=== PATIENT | female | born 1935 | race Caucasian/White ===

== ENCOUNTER 2016-12-10 06:56 | Emergency (ER) | payer MEDICARE, OTHER ==
[2016-12-10] MEDS ORDERED: DEXAMETHASONE 10 MG/ML VIAL PO STA (07:33)
[2016-12-10] MEDS ORDERED: HYDROmorphone 1 MG/ML SYRINGE IM STA (07:33)
[2016-12-10] MEDS ORDERED: ONDANSETRON ODT 4 MG TABLET TL STA (07:33)
[2016-12-10] MEDS ORDERED: CHERRY SYRUP 10 ML UDC PO ONE (07:36)
[2016-12-10] MEDS ORDERED: HYDROmorphone 1 MG/ML SYRINGE ONE (07:36)
[2016-12-10] MEDS ORDERED: ONDANSETRON ODT 4 MG TABLET ONE (07:36)
[2016-12-10] MEDS ORDERED: DEXAMETHASONE 10 MG/ML VIAL ONE (07:36)
== END 2016-12-10 09:49 | disposition home or self-care (01) ==
DX: M16.11 Unilateral primary osteoarthritis, right hip (principal); T40.2X5A Adverse effect of other opioids, initial encounter; R11.2 Nausea with vomiting, unspecified; Y92.009 Unspecified place in unspecified non-institutional (private) residence as the place of occurrence of the external cause; I10 Essential (primary) hypertension
CPT/HCPCS: 73502; 96372; 99284; A9270; J1170; Q0162

== ENCOUNTER 2017-03-25 09:37 | Outpatient (CLI) | payer MEDICARE, OTHER | END 2017-03-25 09:38 | disposition home or self-care (01) | DX: I10 Essential (primary) hypertension (principal) ==

== ENCOUNTER 2018-06-07 08:00 | Outpatient (CLI) | payer MEDICARE, OTHER ==
[2018-06-07 13:14] LABS: BASOPHILS # (AUTO) 0.1 10^3/uL (0.0-0.1); BASOPHILS % (AUTO) 2.1 %; EOSINOPHILS # (AUTO) 0.2 10^3/uL (0.0-0.7); EOSINOPHILS % (AUTO) 5.8 %; HGB - HEMOGLOBIN 13.6 g/dL (12.0-16.0); LYMPHOCYTES # (AUTO) 1.3 10^3/uL (1.5-3.5); LYMPHOCYTES % (AUTO) 37.8 %; MEAN CORPUSCULAR HEMOGLOBIN 32.5 pg (27.0-31.0); MEAN CORPUSCULAR VOLUME 95.5 fL (81.0-99.0); MEAN PLATELET VOLUME 7.7 fL (7.9-10.8); MONOCYTES # (AUTO) 0.2 10^3/uL (0.0-1.0); MONOCYTES % (AUTO) 7.1 %; NEUTROPHILS # (AUTO) 1.6 10^3/uL (1.5-6.6); NEUTROPHILS % (AUTO) 47.2 %; PLT - PLATELET COUNT 211 10^3/uL (130-450); RED BLOOD COUNT 4.17 10^6/uL (4.20-5.40); RED CELL DISTRIBUTION WIDTH 12.8 % (12.0-15.0); WHITE BLOOD COUNT 3.5 x10^3/uL (4.8-10.8)
[2018-06-07 13:52] LABS: ALBUMIN 4.2 g/dL (3.2-5.5); ALBUMIN/GLOBULIN RATIO 1.4 (1.0-2.2); ALKALINE PHOSPHATASE 44 IU/L (42-121); ALT ALANINE AMINOTRANSFERASE 19 IU/L (10-60); AST ASPARTATE AMINOTRANSFERASE 27 IU/L (10-42); BILIRUBIN,TOTAL 0.7 mg/dL (0.2-1.0); BUN - BLOOD UREA NITROGEN 18 mg/dL (6-20); CALCIUM 10.3 mg/dL (8.5-10.3); CARBON DIOXIDE - CO2 28 mmol/L (21-32); CHLORIDE 101 mmol/L (101-111); CHOL/HDL RATIO 1.6 (<4.4); CHOLESTEROL 130 mg/dL; CREATININE 0.7 mg/dL (0.4-1.0); GFR - MDRD 80 (>89); GLUCOSE 96 mg/dL (70-100); HDL CHOLESTEROL 79 mg/dL; LDL CHOLESTEROL,CALCULATED 41 mg/dL; LDL/HDL RATIO 0.5 (<4.4); SODIUM 136 mmol/L (135-145); TOTAL PROTEIN 7.2 g/dL (6.7-8.2); VLDL CHOLESTEROL 10 mg/dL
== END 2018-06-07 08:01 | disposition home or self-care (01) ==
LOC: LAB.WCP 08:00
PROVIDERS: ATTEND Physician Assistant
DX: I10 Essential (primary) hypertension (principal); Z79.899 Other long term (current) drug therapy
CPT/HCPCS: 36415; 80053; 80061; 83721; 85025

== ENCOUNTER 2019-01-16 11:20 | Outpatient (CLI) | payer MEDICARE, OTHER ==
[2019-01-16 18:56] LABS: BASOPHILS # (AUTO) 0.1 10^3/uL (0.0-0.1); BASOPHILS % (AUTO) 1.5 %; EOSINOPHILS # (AUTO) 0.2 10^3/uL (0.0-0.7); EOSINOPHILS % (AUTO) 4.3 %; LYMPHOCYTES # (AUTO) 1.1 10^3/uL (1.5-3.5); MEAN CORPUSCULAR HEMOGLOBIN 31.3 pg (27.0-31.0); MEAN PLATELET VOLUME 7.3 fL (7.9-10.8); MONOCYTES # (AUTO) 0.3 10^3/uL (0.0-1.0); MONOCYTES % (AUTO) 7.9 %; NEUTROPHILS # (AUTO) 2.5 10^3/uL (1.5-6.6); NEUTROPHILS % (AUTO) 60.3 %; PLT - PLATELET COUNT 238 10^3/uL (130-450); RED BLOOD COUNT 4.47 10^6/uL (4.20-5.40); RED CELL DISTRIBUTION WIDTH 13.6 % (12.0-15.0); WHITE BLOOD COUNT 4.1 x10^3/uL (4.8-10.8)
[2019-01-16 19:22] LABS: ALBUMIN 4.6 g/dL (3.2-5.5); ALBUMIN/GLOBULIN RATIO 1.6 (1.0-2.2); BILIRUBIN,TOTAL 1.4 mg/dL (0.2-1.0); CALCIUM 9.9 mg/dL (8.5-10.3); CREATININE 0.7 mg/dL (0.4-1.0); TOTAL PROTEIN 7.5 g/dL (6.7-8.2)
[2019-01-16 20:04] LABS: TROPONIN I < 0.04 ng/mL (<0.49)
[2019-01-16 20:07] LABS: CREATINE KINASE MB 12.6 ng/mL (0.6-6.3)
== END 2019-01-16 11:21 | disposition home or self-care (01) ==
LOC: LAB.WCP 11:20
PROVIDERS: ATTEND Nurse Practitioner
DX: R07.89 Other chest pain (principal); R00.2 Palpitations
CPT/HCPCS: 36415; 80053; 82553; 84443; 84484; 85025; 85379

== ENCOUNTER 2019-09-05 08:00 | Outpatient (CLI) | payer MEDICARE, OTHER ==
[2019-09-05 12:27] LABS: BASOPHILS # (AUTO) 0.1 10^3/uL (0.0-0.1); BASOPHILS % (AUTO) 1.9 %; EOSINOPHILS # (AUTO) 0.2 10^3/uL (0.0-0.7); EOSINOPHILS % (AUTO) 5.3 %; LYMPHOCYTES # (AUTO) 1.3 10^3/uL (1.5-3.5); LYMPHOCYTES % (AUTO) 30.5 %; MEAN CORPUSCULAR HEMOGLOBIN 30.4 pg (27.0-31.0); MEAN CORPUSCULAR HGB CONC 32.2 g/dL (32.0-36.0); MEAN CORPUSCULAR VOLUME 94.6 fL (81.0-99.0); MEAN PLATELET VOLUME 9.4 fL (7.9-10.8); MONOCYTES # (AUTO) 0.3 10^3/uL (0.0-1.0); MONOCYTES % (AUTO) 6.9 %; NEUTROPHILS # (AUTO) 2.3 10^3/uL (1.5-6.6); NEUTROPHILS % (AUTO) 55.2 %; PLT - PLATELET COUNT 228 10^3/uL (130-450); RED CELL DISTRIBUTION WIDTH 12.8 % (12.0-15.0); WHITE BLOOD COUNT 4.2 x10^3/uL (4.8-10.8)
[2019-09-05 13:08] LABS: ALBUMIN 4.6 g/dL (3.2-5.5); ALBUMIN/GLOBULIN RATIO 1.6 (1.0-2.2); ALKALINE PHOSPHATASE 42 IU/L (42-121); ALT ALANINE AMINOTRANSFERASE 19 IU/L (10-60); AST ASPARTATE AMINOTRANSFERASE 21 IU/L (10-42); BILIRUBIN,TOTAL 0.7 mg/dL (0.2-1.0); BUN - BLOOD UREA NITROGEN 25 mg/dL (6-20); CALCIUM 10.7 mg/dL (8.5-10.3); CARBON DIOXIDE - CO2 30 mmol/L (21-32); CHLORIDE 100 mmol/L (101-111); CHOL/HDL RATIO 2.1 (<4.4); CHOLESTEROL 149 mg/dL; CREATININE 0.7 mg/dL (0.4-1.0); GFR - MDRD 80 (>89); GLUCOSE 91 mg/dL (70-100); HDL CHOLESTEROL 72 mg/dL; LDL CHOLESTEROL,CALCULATED 62 mg/dL; LDL/HDL RATIO 0.9 (<4.4); SODIUM 138 mmol/L (135-145); TOTAL PROTEIN 7.4 g/dL (6.7-8.2); VLDL CHOLESTEROL 15 mg/dL
== END 2019-09-05 23:59 | disposition home or self-care (01) ==
LOC: LAB.WCP 08:00
PROVIDERS: ATTEND Physician Assistant Medical
DX: Z00.00 Encounter for general adult medical examination without abnormal findings (principal); Z79.899 Other long term (current) drug therapy; K21.9 Gastro-esophageal reflux disease without esophagitis; I63.9 Cerebral infarction, unspecified; B19.20 Unspecified viral hepatitis C without hepatic coma
CPT/HCPCS: 36415; 80053; 80061; 83721; 84443; 85025

== ENCOUNTER 2020-01-17 21:01 | Observation (INO) | payer MEDICARE, OTHER ==
--- NOTE | 2020-01-17 21:30 | ED Physician Documentation ---
History of Present Illness - Stated complaint Stated Complaint: HBP/DIZZY - Chief complaint Chief Complaint: Neuro - Additonal information Additional information: This is an 84-year-old female with a history of posterior circulation stroke/v erterbral artery dissection, colon cancer status post resection, who presents with dizziness and instability on her feet. Patient began feeling dizzy around 4 PM, she told her son about this a half an hour prior to arrival, and he brought her here. She states that in the past when she had the verterbral artery dissection she had similar symptoms except today they felt more mild. She denies residual deficits from her past stroke. She has had a mild epigastric discomfort for several months her PCP told her that this is probably indigestion, no changes to this tonight. She feels unsteady on her feet, she feels worse when she lies down. She does feel somewhat like the world is moving around her, but also just uncoordinated and having difficulty walking. She denies any weakness or numbness, no speech changes, confusion. Her son took her blood pressure at home and it was 170s over 90s. She did take her hydralazine and take an extra dose of this at home. She denies any difficulty breathing Review of Systems Constitutional: denies: Fever Eyes: denies: Loss of vision Ears: denies: Loss of hearing Cardiac: denies: Chest pain / pressure Respiratory: denies: Dyspnea GI: denies: Nausea : denies: Dysuria Musculoskeletal: denies: Neck pain Neurologic: denies: Focal weakness, Numbness PD PAST MEDICAL HISTORY - Past Medical History Cardiovascular: Hypertension Respiratory: None Endocrine/Autoimmune: None GI: Chronic constipation, Other (Colon cancer status post partial colectomy) : None HEENT: Other Psych: None Musculoskeletal: Osteoarthritis, Chronic back pain Derm: Other - Past Surgical History Past Surgical History: Yes General: Cholecystectomy, Appendectomy, Bowel surgery, Colonoscopy /[employer]: section HEENT: Cataracts - Present Medications Home Medications: Ambulatory Orders Medication Instructions Recorded Confirmed lisinopriL [Zestril] 20 mg PO QPM 01/21/14 01/18/20 Aspirin 325 mg PO DAILY 01/18/20 01/18/20 Atorvastatin Calcium 10 mg PO QPM 01/18/20 01/18/20 Calcium Carbonate/Vitamin D3 1 tab PO DAILY 01/18/20 01/18/20 [Caltrate 600 Plus D3 Tablet] Cetirizine [ZyrTEC] 5 - 10 mg PO BID MDD 15 mg 01/18/20 01/18/20 Docusate Sodium 250Mg Capsule 250 mg PO BID 01/18/20 01/18/20 [Colace 250Mg Capsule] Hydralazine HCl 25 mg PO TID #90 tablet 01/18/20 Lisinopril/Hydrochlorothiazide 1 tab PO DAILY 01/18/20 01/18/20 [Lisinopril-Hctz 20-25 mg Tab] Omeprazole Magnesium 20 mg PO DAILY 01/18/20 01/18/20 - Allergies Allergies/Adverse Reactions: Allergies Allergy/AdvReac Type Severity Reaction Status Date / Time No Known Drug Allergies Allergy Verified 01/17/20 21:08 - Social History Does the pt smoke?: No Smoking Status: Never smoker Does the pt drink ETOH?: No Does the pt have substance abuse?: No - Immunizations Immunizations are current?: Yes - POLST Patient has POLST: No POLST Status: Full Code PD ED PE NORMAL - Vitals Vital signs reviewed: Yes - General General: Alert and oriented X 3, No acute distress - HEENT HEENT: PERRL, EOMI - Neck Neck: Supple, no meningeal sign - Cardiac Cardiac: RRR, No murmur - Respiratory Respiratory: No respiratory distress, Clear bilaterally - Abdomen Abdomen: Normal bowel sounds, Soft, Non tender, Non distended - Derm Derm: Warm and dry - Extremities Extremities: No deformity - Neuro Neuro: Other (Alert, oriented x3. Extraocular movements are intact, pupils equal round reactive to light. Sensation to testing over entire face is normal and symmetric. Jaw clench is normal and strength head turn is normal and strength shoulder shrug normal. Tongue protrudes in midline. Hearing is symmetric bilaterally. There is 5 out of 5 strength with hand squeeze finger abduction wrist extension elbow flexion extension hip flexion and extension, ankle dorsiflexion and plantarflexion. Sensation intact over all extremities. She is normal coordination with [id number] testing without dysmetria bilaterally. Normal [id number] with good coordination. She does have a slightly discoordinated/ataxic gait but is able to walk without assistance for a number of steps, though several times she wavers to the side as if she is about to fall. There is no delay with head impulse testing there is no skew of the eyes, there is no nystagmus. [place] produces dizziness but no obvious nystagmus.) - Psych Psych: Normal mood, Normal affect Results - Vitals Vitals: Oxygen O2 Source Room air - EKG (time done) 21:18 Other comments: Other comments (Rate 64, rhythm sinus, baseline wander obscures the frontal leads. The computer reads minimal depression in the inferior leads and ST elevation the lateral leads, I disagree, appears to be some movement artifact, but no consistent elevation or depression.) - Labs Labs: Laboratory Tests 01/17/20 01/17/20 01/17/20 22:23 22:23 22:23 WBC 3.9 L RBC 4.10 L Hgb 12.9 Hct 38.4 MCV 93.7 MCH 31.5 H MCHC 33.6 RDW 12.9 Plt Count 191 MPV 8.8 Neut # (Auto) 2.0 Lymph # (Auto) 1.3 L [place] # (Auto) 0.3 Eos # (Auto) 0.1 Baso # (Auto) 0.1 Absolute Nucleated RBC 0.00 Nucleated RBC % 0.0 PT 12.0 INR 1.1 Sodium 138 Potassium 3.2 L Chloride 99 L Carbon Dioxide 27 Anion Gap 12.0 BUN 20 Creatinine 0.6 Estimated GFR (MDRD) 95 Glucose 115 H Calcium 9.8 Total Bilirubin 0.7 AST 22 ALT 20 Alkaline Phosphatase 46 Troponin I High Sens Total Protein 6.9 Albumin 4.4 Globulin 2.5 Albumin/Globulin Ratio 1.8 Lipase 47 01/17/20 22:23 WBC RBC Hgb Hct MCV MCH MCHC RDW Plt Count MPV Neut # (Auto) Lymph # (Auto) [place] # (Auto) Eos # (Auto) Baso # (Auto) Absolute Nucleated RBC Nucleated RBC % PT INR Sodium Potassium Chloride Carbon Dioxide Anion Gap BUN Creatinine Estimated GFR (MDRD) Glucose Calcium Total Bilirubin AST ALT Alkaline Phosphatase Troponin I High Sens 5.6 Total Protein Albumin Globulin Albumin/Globulin Ratio Lipase - Rads (name of study) Ct head WO Radiology: Other (No acute intracranial abnormality) CTA head and neck Radiology: Other (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 There is a 2 cm hypodensity in the medial portion of the inferior right cerebellum compatible with that infarct in the distal right PICA territory, this is new from 10/02/2017, and could potentially toni present a recent infarct.) PD MEDICAL DECISION MAKING - ED course Complexity details: considered differential (Stroke, TIA, Mnire's disease, benign positional vertigo, electrolyte abnormality, ACS) ED course: On arrival patient is nontoxic-appearing, she has an NIH stroke scale of 0, but with walking she does have some ataxia, she has persistent vertigo and her hints exam shows no Delay with head impulse testing, which suggests a likely central cause of her symptoms. She is outside the window for thrombolytics given that her symptoms began over 4.[address] reveals no acute abnormality. Labs are unremarkable. Patient was given a dose of meclizine, afterwards she had some improvement but she continued to have dizziness. Given that she had a vertebral artery dissection in the past and that her symptoms were similar to when she presented with that dissection, we obtained a CTA of her head and neck, This showed a persistent occlusion of the right vertebral artery as well as a new hypodensity in the medial inferior right cerebellum. Talking with the patient she does continue to have some symptoms, she feels better and is able to walk with more stability but she still wavers at times and appears to have some mild ataxia. After discussion with her, she agrees to admission for further evaluation and work-up. She takes at 325 aspirin a day, and she is already on a statin as well. Pt was admitted for further evaluation and treatment. Departure - Departure Disposition: ED Place in Observation Clinical Impression: Stroke Qualifiers: CVA mechanism: unspecified Qualified Code(s): I63.9 - Cerebral infarction, unspecified Condition: Good Discharge Date/Time: 01/18/20 04:48
[2020-01-17 22:28] LABS: BASOPHILS # (AUTO) 0.1 10^3/uL (0.0-0.1); BASOPHILS % (AUTO) 1.6 %; EOSINOPHILS # (AUTO) 0.1 10^3/uL (0.0-0.7); EOSINOPHILS % (AUTO) 3.1 %; HGB - HEMOGLOBIN 12.9 g/dL (12.0-16.0); LYMPHOCYTES # (AUTO) 1.3 10^3/uL (1.5-3.5); LYMPHOCYTES % (AUTO) 34.4 %; MEAN CORPUSCULAR HEMOGLOBIN 31.5 pg (27.0-31.0); MEAN CORPUSCULAR HGB CONC 33.6 g/dL (32.0-36.0); MEAN CORPUSCULAR VOLUME 93.7 fL (81.0-99.0); MEAN PLATELET VOLUME 8.8 fL (7.9-10.8); MONOCYTES # (AUTO) 0.3 10^3/uL (0.0-1.0); MONOCYTES % (AUTO) 8.8 %; NEUTROPHILS % (AUTO) 51.8 %; PLT - PLATELET COUNT 191 10^3/uL (130-450); RED CELL DISTRIBUTION WIDTH 12.9 % (12.0-15.0); WHITE BLOOD COUNT 3.9 x10^3/uL (4.8-10.8)
[2020-01-17 22:35] LABS: INR 1.1 (0.8-1.2)
[2020-01-17 22:46] LABS: ALBUMIN 4.4 g/dL (3.2-5.5); ALBUMIN/GLOBULIN RATIO 1.8 (1.0-2.2); BILIRUBIN,TOTAL 0.7 mg/dL (0.2-1.0); CALCIUM 9.8 mg/dL (8.5-10.3); CREATININE 0.6 mg/dL (0.4-1.0); TOTAL PROTEIN 6.9 g/dL (6.7-8.2)
[2020-01-17] MEDS ORDERED: MECLIZINE 12.5 MG TABLET PO STA (23:15)
--- NOTE | 2020-01-17 23:24 | CT Report ---
Reason: dizzy, HBP, hx post circulation stroke Procedure Date: 01/17/2020 Accession Number: [id number] / [id number] Procedure: CT - HEAD WO CPT Code: Final Report FULL RESULT: EXAM: CT HEAD EXAM DATE: 01/17/2020 11:12 PM. CLINICAL HISTORY: Dizzy, HBP, hx post circulation stroke. COMPARISON: HEAD ANGIO 10/02/2017 8:16 PM. TECHNIQUE: Multiaxial CT images were obtained from the foramen magnum to the vertex. Reformats: Sagittal and coronal. IV contrast: None. In accordance with CT protocol optimization, one or more of the following dose reduction techniques were utilized for this exam: automated exposure control, adjustment of mA and/or KV based on patient size, or use of iterative reconstructive technique. FINDINGS: Parenchyma: No intraparenchymal hemorrhage. No evidence of mass, midline shift, or CT findings of infarction. Garvin-white differentiation is distinct. Decreased attenuation in periventricular and deep white matter is likely chronic microangiopathy. No change compared to prior exam. Extraaxial Spaces: Volume loss compatible with age. No subdural or epidural collections identified. Ventricles: Normal in size and position. Sinuses and Orbits: Imaged paranasal sinuses, orbits, and mastoids show no significant abnormality. Bones: No evidence of fracture or calvarial defect. Other: None. IMPRESSION: No acute intracranial abnormality. No significant change compared to September 2017. RADIA
[2020-01-18] MEDS ORDERED: IOVERSOL 320 100 ML VIAL IVP ONE ×2 (00:31→00:57)
--- NOTE | 2020-01-18 02:15 | CT Report ---
Reason: hx verterbral dissection, vertigo and ataxia Procedure Date: 01/18/2020 Accession Number: [id number] / [id number] Procedure: CT - ANGIO NECK W CPT Code: Final Report FULL RESULT: EXAM: CT ANGIOGRAM NECK EXAM DATE: 01/18/2020 01:03 AM. CLINICAL HISTORY: Hx vertebral dissection, vertigo and ataxia. COMPARISON: CT HEAD W/O 01/17/2020 11:[address] ANGIO 10/02/2017 8:16 PM. TECHNIQUE: Routine axial helical imaging was performed from the skull base through the aortic arch. Reconstructions: Routine multiplanar 3D MIP reconstructions. IV Contrast: ISOVUE 370. Evaluation of arterial stenosis is based on a NASCET method of measurement. In accordance with CT protocol optimization, one or more of the following dose reduction techniques were utilized for this exam: automated exposure control, adjustment of mA and/or KV based on patient size, or use of iterative reconstructive technique. FINDINGS: Aortic arch: There is mild atherosclerotic calcification scattered in the aortic arch. Visualized arch is otherwise unremarkable. Great vessels are patent without evidence of stenosis. Left vertebral artery arises directly from the aortic arch. A normal variant. Right carotid artery: The common, internal, and external carotid arteries are widely patent. No evidence of stenosis or dissection. Left carotid artery: The common, internal, and external carotid arteries are widely patent. No evidence of stenosis or dissection present Vertebral arteries: Right vertebral artery: The V1 and proximal V2 segments of the right vertebral artery are visualized and are patent. There is complete occlusion of the distal V2 segment at the C2-C3 level. The V3 and proximal V4 segments of the right artery also remain occluded. This is unchanged compared to the previous CT angiogram dated 10/02/2017 and is consistent with the history of prior dissection. Left vertebral artery: The left vertebral artery arises from the aortic arch which is a normal variant. The left for 2 arteries patent and normal in caliber throughout its course without evidence of stenosis or dissection. Other: The neck soft tissues and visualized lung apices are unremarkable. Mild to moderate degenerative change is noted in the cervical spine similar to the previous CTA. IMPRESSION: 1. 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 This is unchanged compared to the previous CTA on 10/02/2017. This is consistent with the history of prior dissection. 2. Left vertebral artery arises directly from the aortic arch and is normal in caliber throughout its course without evidence of stenosis or dissection. 3. Both carotid arteries are patent without evidence of stenosis or dissection. RADIA
--- NOTE | 2020-01-18 02:46 | CT Report ---
Reason: hx verterbral dissection, vertigo and ataxia Procedure Date: 01/18/2020 Accession Number: [id number] / [id number] Procedure: CT - ANGIO HEAD W/WO CPT Code: Final Report FULL RESULT: EXAM: CT ANGIOGRAM HEAD. CT SCAN OF THE HEAD without and with CONTRAST. EXAM DATE: 01/18/2020 01:03 AM CLINICAL HISTORY: Hx vertebral dissection, vertigo and ataxia. COMPARISON: CT HEAD W/O 01/17/2020 11:08 PM. TECHNIQUE: - CT Scan Head: Using a multidetector scanner, axial images were acquired from the foramen magnum to the skull vertex following contrast administration. - CT Angiogram: Using a multidetector scanner, high-resolution axial images were acquired from the skull base through vertex following rapid infusion of intravenous contrast. Reformats: Multiplanar MIP reformats were reconstructed. NASCET criteria used for stenosis measurement. IV Contrast: OPTIRAY 320-80 mL. In accordance with CT protocol optimization, one or more of the following dose reduction techniques were utilized for this exam: automated exposure control, adjustment of mA and/or KV based on patient size, or use of iterative reconstructive technique. FINDINGS: NON-CONTRAST HEAD: Parenchyma: No intraparenchymal hemorrhage. No evidence of mass, mass-effect, or midline shift. There is a 2 cm focus of hypodensity in the medial portion of the inferior right cerebellum (image 6, series 3 and sagittal image 32, series 19). No obvious volume loss is identified in this region. This was not present on the CT on 10/02/2017. This is compatible with a small infarct in the right PICA distribution. This is of indeterminate age. However, the lack of volume loss in this region suggests that this infarct could be acute to subacute in age. MRI with diffusion-weighted imaging would be useful to determine the age of this infarct. There is mild to moderate chronic microvascular change in the cerebral white matter bilaterally. Extraaxial Spaces: There is age-related generalized cerebral volume loss. This is stable. No subdural or epidural collections identified. Ventricles: No hydrocephalus. Sinuses and orbits: Imaged paranasal sinuses, orbits, and mastoids show no significant abnormality. Bones: No evidence of fracture or calvarial defect. Other: None. POST-CONTRAST HEAD: No abnormal enhancement. CT ANGIOGRAM HEAD: Anterior circulation: The petrous, cavernous, and supraclinoid segments of both internal carotid arteries are patent. There is mild atherosclerotic calcification and bilateral carotid siphons. No evidence of stenosis. The middle cerebral and anterior cerebral artery distributions are patent bilaterally and appear unremarkable. The right [employer] has type anatomy. Posterior circulation: The proximal V4 segment of the intracranial right vertebral artery is occluded. This is unchanged compared to 10/02/2017. The distal left vertebral artery supplies the basilar artery and appears normal. The left PICA is visualized and appears normal. There is retrograde filling of the distal right vertebral artery which appears to be the dominant vertebral artery. The proximal portion right PICA is visualized and appears patent. There is a large right AICA which appears to supply most of the right PICA territory. These findings appear similar to the previous CTA on 10/02/2017. The basilar artery is patent and normal in caliber. The P1 segment of the right [employer] is moderately hypoplastic due to anatomy of the right [employer]. This is a normal variant. Posterior circulation is otherwise unremarkable. No aneurysm or AVM is identified. Dural venous sinuses are patent. IMPRESSION: CT Head without and with IV contrast: 1. A 2 cm hypodensity in the medial portion of the inferior right cerebellum posteriorly is compatible with an infarct in the distal right PICA territory. This is of indeterminate age but is new compared to 10/02/2017. This infarct is of indeterminate age. However, the lack of volume loss in this region suggests that this could potentially represent a recent infarct given the clinical history of vertigo/ataxia. An MRI brain would be useful to determine the age of this infarct. There is no evidence of hemorrhage or mass-effect. 2. Age-related generalized cerebral volume loss and chronic microvascular change. 3. No abnormal enhancement. CTA Head: 1. The distal cervical segment of the right vertebral artery and the proximal intracranial V4 segment are occluded. This is unchanged compared to the CTA on 10/02/2017 compatible with a history of prior dissection. 2. There is retrograde filling of the distal right vertebral artery. The proximal portion of a small right PICA is visualized and appears patent. The distal portion of the small right PICA is not definitively visualized. However, there is a large right AICA which appears to supply most of the right PICA territory. This appearance has not changed significantly compared to the CTA on 10/02/2017. 3. The intracranial circulation is otherwise unremarkable. RADIA The critical result notification system was initiated by Dr. Rich Solorio at 02:31 AM on 01/18/2020. The above critical result findings were discussed with Demario Rockwell by Dr. Rich Solorio at 02:37 AM on 01/18/2020.
[2020-01-18] MEDS ORDERED: ONDANSETRON 4 MG/2 ML VIAL IVP PRN (04:03)
[2020-01-18] MEDS ORDERED: SODIUM CHLORIDE FLUSH 0.9% 10 ML SYRINGE IVP PRN (04:03)
[2020-01-18] MEDS ORDERED: oxyCODONE 5 MG TABLET PO PRN (04:03)
[2020-01-18] MEDS ORDERED: ACETAMINOPHEN 325 MG TABLET PO PRN (04:03)
[2020-01-18] MEDS ORDERED: ONDANSETRON ODT 4 MG TABLET TL PRN (04:03)
[2020-01-18] MEDS ORDERED: ATORVASTATIN 40 MG TABLET PO STA (04:07)
--- NOTE | 2020-01-18 04:23 | HISTORY & PHYSICAL EXAMINATION ---
Chief Complaint - Chief Complaint Chief Complaint: sudden dizziness History of Present Illness - Admitted From Admitted From:: Home/ER - History Obtained From Records Reviewed: [facility] History obtained from: Dr. Rockwell Exam Limitations: none - History of Present Illness HPI Comment/Other: This donal lady already has a previous history of a posterior circulation stroke that presented as abrupt nausea and vomiting in September 2017. With that admission she was transferred to [facility]. There was no surgical intervention or TPA and the patient was placed on aspirin and statin. She now returns with abrupt dizziness and a staggering gait. Started around 4:00 today. She was brought to the emergency room and was triaged at 2100 she does not have any facial dysesthesia, dysphasia, blurred vision, headache. She does not feel like there is any numbness or tingling in any particular side of her body. Because her blood pressure was a little high with all of this at home, she took an extra dose of her hydralazine. Her son had taken her blood pressure and it was in the 170s over 90s. She was seen in the emergency room by Dr. Rockwell. Temperature was 36.3, pulse 84, blood pressure 159/110 with respirations 18 and 99% on room air. And CT of the head showed no acute intracranial abnormality and without any change from September 2017. And head and neck CTA was done and was patient has a 2 cm hypodensity in the medial portion of the inferior right cerebellum compatible with an infarct in the distal right PICA territory. This is new compared to October 02, 2017. Radiology recommends an MRI. 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 Unchanged from September 2017. She is now placed in observation status for TIA versus stroke evaluation. 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 Healthy without any major medical issues. Father was 98 when he . Old age. Sister had colon cancer and hypertension Living arrangement: At home Living Situation: Alone Social History Notes: The patient is originally from [place] moved to the [facility] when she was 22 years old. She initially lived with her in [place], [place]. They moved to [facility] about 53 years ago and she has been living here ever since. The patient gave to 4 children 1 of whom has . The patient's about 33 years ago she is . The patient lives alone in her own home she is fully independent. She states that she still drives. 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 Patient has never smoked, does not drink alcohol and denies any illicit drug use. - Substance History Use: Uses substance without health or social issues: NONE Abuse: Recurrent use of substance despite neg consequences: NONE - POLST Patient has POLST: No POLST Status: Full Code Meds/Allgy - Home Medications Home Medications: Ambulatory Orders Medication Instructions Recorded Confirmed Metoprolol Tartrate [Lopressor] 25 mg PO BID 01/21/14 10/02/17 lisinopriL [Zestril] 20 mg PO BID 01/21/14 10/02/17 Meloxicam 1 tab PO DAILY 10/02/17 10/02/17 Triamterene/Hydrochlorothiazid 1 tab PO DAILY 10/02/17 10/02/17 [Triamterene-Hctz 37.5-25 mg Tb] - Allergies Allergies/Adverse Reactions: Allergies Allergy/AdvReac Type Severity Reaction Status Date / Time No Known Drug Allergies Allergy Verified 01/17/20 21:08 Review of Systems - Constitutional Constitutional: denies: Fatigue, Fever, Chills, Malaise - Eyes Eyes: denies: Pain, Field loss, Vision loss, Dipolpia - Ears, Nose & Throat Ears, Nose & Throat: reports: Vertigo. denies: Ear pain, Nosebleeds, Nasal obstruction, Nasal congestion, Sore throat - Cardiovascular Cariovascular: denies: Irregular heart rate, Palpitations, Chest pain, Edema, Syncope, Exertional dyspnea - Respiratory Respiratory: denies: Cough, Sputum production, Wheezing, SOB at rest, SOB with exertion - Gastrointestinal Gastrointestinal: reports: Constipation. denies: Abdominal pain, Abdominal distention, Diarrhea, Nausea, Vomiting - Genitourinary Genitourinary: denies: Dysuria, Frequency, Hematuria, Flank pain - Musculoskeletal Musculoskeletal: reports: Joint pain. denies: Muscle pain, Back pain, Muscle aches - Integumentary Integumentary: denies: Rash, Pruritis, Lesions - Neurological Neurological: reports: Dizziness. denies: General weakness, Focal weakness, Headache - Psychiatric Psychiatric: denies: Depression, Anxiety, Suicidal - Endocrine Endocrine: denies: Polyuria, Polydypsia, Polyphagia - Hematologic/Lymphatic Hematologic/Lymphatic: denies: Anemia Prior Level of Functionality: Does not need any assistance with activities of daily living and does not use any durable medical equipment Exam - Vital Signs Reviewed Vital Signs: Yes Vital Signs: Vital Signs x48h Temp Pulse Resp BP Pulse Ox 01/18/20 04:19 64 15 97 01/18/20 01:30 56 L 16 167/87 H 97 01/18/20 01:00 57 L 17 165/93 H 97 01/18/20 00:00 60 22 172/89 H 96 01/17/20 23:14 63 18 181/87 H 98 01/17/20 22:25 190/75 H 01/17/20 21:37 66 20 194/98 H 01/17/20 21:36 61 16 190/106 H 01/17/20 21:04 36.3 C L 84 18 159/110 H 99 - Physical Exam General Appearance: positive: No acute distress, Alert, Other (She is a delightful elderly female who gets up without any assist from the bed to then walk to the toilet to go to the bathroom. Gets up from the bathroom without any assist and then walks back to sit down on the bed, move her legs up into the bed and lay down, all without assist. All without ataxia.) Eyes Bilateral: positive: PERRL, EOMI ENT: positive: Pharynx nml Neck: positive: No JVD. negative: Stiff neck, Carotid bruit Respiratory: positive: Chest non-tender, Other (Kyphosis of the spine has a forward leaning posture). negative: Wheezes, Rales, Rhonchi Cardiovascular: positive: Regular rate & rhythm, No murmur. negative: Gallop/S4, Friction rub Peripheral Pulses: positive: 1+ Abdomen: positive: Non-tender, No organomegaly, Nml bowel sounds, No distention Skin: positive: Warm, Dry Extremities: positive: Non-tender, No pedal edema Neurologic/Psychiatric: positive: Oriented x3, CN's nml (2-12), Motor nml, Sensation nml Reflexes: Bicep (R): 1+, Bicep (L): 1+, Knee (R): 1+, Knee (L): 1+, Ankle (R): 0, Ankle (L): 0 Babinski Reflex: Right: Down, Left: Down Conclusion/Plan - Problem List (1) TIA (transient ischemic attack) Conclusion/Plan: Most of her symptoms have resolved. In the emergency room she was road tested and has a little bit of instability with gait. She denies that she had any residual from her previous stroke. Current CT shows that there is been a new event since her last stroke but is unclear if it is acute or chronic. Current symptoms could be TIA. Plan: Aspirin 325 Atorvastatin MRI in the morning Telemetry Echo (2) Hypertension Conclusion/Plan: Allow permissive hypertension up to 180 systolic. I will resume her metoprolol to avoid rebound tachycardia. I will not give her her lisinopril at this time. Qualifiers: Hypertension type: essential hypertension Qualified Code(s): I10 - Essential (primary) hypertension (3) Hypokalemia Conclusion/Plan: Supplement p.o. and recheck in 4 hours - Lab Results Lab results reviewed: Yes Fish Bones: 01/17/20 22:23 01/17/20 22:23 - Diagnostic Imaging Results Diagnostic Imaging Results: positive: Final report reviewed Core Measures - Anticipated LOS I expect patient to be DC'd or transferred within 96 hours.: Yes - DVT/VTE - Prophylaxis VTE/DVT Device ordered at admit?: Yes
[2020-01-18] MEDS ORDERED: POTASSIUM CHLORIDE 20 MEQ TABLET PO ONE (04:45)
--- NOTE | 2020-01-18 08:41 | MRI Report ---
Reason: stroke Procedure Date: 01/18/2020 Accession Number: [id number] / [id number] Procedure: MRI - Brain W/O CPT Code: Final Report FULL RESULT: EXAM: MRI BRAIN WITHOUT CONTRAST EXAM DATE: 01/18/2020 08:22 AM. CLINICAL HISTORY: Stroke, history of right vertebral dissection. COMPARISON: HEAD W/O 01/17/2020 11:08 PM. TECHNIQUE: Multiplanar, multisequence T1-weighted and fluid-sensitive MR sequences of the brain were performed. Sequences optimized for routine evaluation. Other: None. IV Contrast: None. FINDINGS: Parenchyma/Dura: No restricted diffusion. 15 x 24 mm band of high T2 signal volume loss and right inferior cerebellum. Scattered foci of increased T2 signal involving the white matter of bilateral cerebral hemispheres. No white matter lesions identified. Ventricles/Cisterns: Mild prominence. No mass-effect and no midline shift. No abnormal extra-axial fluid collection or hemorrhage. Orbits: Symmetric and unremarkable. Sella Turcica: Unremarkable. Vasculature: Loss of right vertebral flow void. Sinuses: No acute appearing sinus disease. Bones: No focal pathologic appearing marrow signal changes. Other: None. IMPRESSION: 1. No evidence of acute infarct. 2. 2.4 cm remote right inferior cerebellar infarct. 3. Known right vertebral occlusion. 4. Mild to moderate microvascular white matter disease. RADIA
[2020-01-18] MEDS ORDERED: METOPROLOL TARTRATE 25 MG TABLET PO SCH (09:00)
[2020-01-18] MEDS ORDERED: ASPIRIN EC 325 MG TABLET PO SCH (09:00)
[2020-01-18] MEDS ORDERED: SODIUM CHLORIDE FLUSH 0.9% 10 ML SYRINGE IVP SCH (09:00)
[2020-01-18] MEDS ORDERED: lisinopriL 20 MG TABLET PO SCH (11:00)
--- NOTE | 2020-01-18 11:35 | PHARMACY PROGRESS NOTE ---
- Best Possible Medication History Admit Date and Time: 01/18/20 0403 Processed by: Pharmacy Medication History completed: Yes Patient Interview: Completed Secondary Source(s): Other family member (daughter in law), Insurance records As the person ultimately responsible for medication therapy, providers are able to order a medication from an existing home medication list in [facility] via the "Reconcile Routine" prior to Confirmation of that medication by user support analyst. Such practice is discouraged except when the physician, in their clinical judgment, deems that a medical need exists for a medication without regard to previous use.
--- NOTE | 2020-01-18 11:35 | Discharge Plan ---
Discharge Plan Problem Reviewed?: Yes Disposition: Home, Self Care Condition: Good Prescriptions: Hydralazine HCl 25 mg PO TID #90 tablet Diet: Regular Activity Restrictions: Activity as Tolerated Shower Restrictions: No Instruction Topics: TIA Health Concerns: TIA Bradycardia (low heart rate) Hypertension (high blood pressure) Plan of Treatment: Continue all of your usual medications STOP the metoprolol, if resumed, ok to take 12.5mg (succinate-sustained release) See your PCP within one week Care Goals: Prevent symptoms Prevent hospital stays or ED visits Assessment: You were in the hospital to determine if you suffered permanent damage from your prior stroke symptoms, which was negative. The fact that your symptoms resolved, concludes the final diagnosis of a TIA (transient ishemic attack). The treatment for this is a full dose aspirin and a statin (Atorvastatin), which you are already on at home. During your stay, you were monitored on telemetry showing a very low heart rate 40-60s. This is concerning and if prolonged; can cause you to fall, make your very tired. For this, you will need to stop the beta danay (metoprolol). You are free to return home today. There is a prescription for Hydralazine to be taken three times per day. No Smoking: If you smoke, Please STOP! Call for help. Follow-up with: Nicolasa Rapp PA-C [Primary Care Provider] -
--- NOTE | 2020-01-18 11:35 | DISCHARGE SUMMARY ---
Discharge Summary Admit Date: 01/18/20 Discharge Date: 01/18/20 Discharging Provider: MAIK Lea Primary Care Provider: Nicolasa Rapp Code Status: Attempt Resuscitation Condition at Discharge: Good Discharge Disposition: 01 Home, Self Care - DIAGNOSES Admission Diagnoses: TIA (transient ischemic attack) HTN (hypertension) Hypokalemia Discharge Diagnoses with Status of Each Condition: TIA (transient ischemic attack)-Present on admission, no new infarcts, continued on full dose ASA, statin, stable Prior cerebellar infarct without late effect-Known on admission, found again today during head imaging, stable 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 Moe: This donal lady already has a previous history of a posterior circulation stroke that presented as abrupt nausea and vomiting in September 2017. With that admission she was transferred to [facility]. There was no surgical intervention or TPA and the patient was placed on aspirin and statin. She now returns with abrupt dizziness and a staggering gait. Started around 4:00 today. She was brought to the emergency room and was triaged at 2100 she does not have any facial dysesthesia, dysphasia, blurred vision, headache. She does not feel like there is any numbness or tingling in any particular side of her body. Because her blood pressure was a little high with all of this at home, she took an extra dose of her hydralazine. Her son had taken her blood pressure and it was in the 170s over 90s. She was seen in the emergency room by Dr. Rockwell. Temperature was 36.3, pulse 84, blood pressure 159/110 with respirations 18 and 99% on room air. And CT of the head showed no acute intracranial abnormality and without any change from September 2017. And head and neck CTA was done and was patient has a 2 cm hyp odensity in the medial portion of the inferior right cerebellum compatible with an infarct in the distal right PICA territory. This is new compared to October 02, 2017. Radiology recommends an MRI. 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 Unchanged from September 2017. - HOSPITAL COURSE Hospital Course: The patient was admitted for observation for a TIA work up, which was negative. The patient remained on her usual full dose aspirin and a statin (Atorvastatin), which she was already on at home. During her stay, she was monitored on telemetry showing a very low heart rate 40-60s. This was concerning, so her metoprolol was stopped. Since she had continued hypertension, a 3rd dose of hydralazine was added going from BID to TID, with no other changes. The patient passed her physical therapy evaluation, had no recurrance of her symptoms and was medically stable. Her family transported her back home via private car. - ALLERGIES Allergies/Adverse Reactions: Allergies Allergy/AdvReac Type Severity Reaction Status Date / Time No Known Drug Allergies Allergy Verified 01/17/20 21:08 - MEDICATIONS Home Medications: Ambulatory Orders Medication Instructions Recorded Confirmed lisinopriL [Zestril] 20 mg PO QPM 01/21/14 01/18/20 Aspirin 325 mg PO DAILY 01/18/20 01/18/20 Atorvastatin Calcium 10 mg PO QPM 01/18/20 01/18/20 Calcium Carbonate/Vitamin D3 1 tab PO DAILY 01/18/20 01/18/20 [Caltrate 600 Plus D3 Tablet] Cetirizine [ZyrTEC] 5 - 10 mg PO BID MDD 15 mg 01/18/20 01/18/20 Docusate Sodium 250Mg Capsule 250 mg PO BID 01/18/20 01/18/20 [Colace 250Mg Capsule] Hydralazine HCl 25 mg PO TID #90 tablet 01/18/20 Lisinopril/Hydrochlorothiazide 1 tab PO DAILY 01/18/20 01/18/20 [Lisinopril-Hctz 20-25 mg Tab] Omeprazole Magnesium 20 mg PO DAILY 01/18/20 01/18/20 - PHYSICAL EXAM AT DISCHARGE General Appearance: positive: No acute distress, Alert Eyes Bilateral: positive: Normal inspection, PERRL, Other (bilateral pupils are more constricted than expected, no changes in vision) ENT: positive: Dry mucous membranes Neck: positive: No JVD, Trachea midline Respiratory: positive: Chest non-tender, No respiratory distress, Breath sounds nml Cardiovascular: positive: Regular rate & rhythm, Bradycardia, Systolic murmur, Decreased pulse(s) Peripheral Pulses: positive: 1+ Abdomen: positive: Non-tender, Nml bowel sounds, Other (rounded, soft) Back: positive: Nml inspection Skin: positive: No rash, Warm, Dry Extremities: positive: Non-tender, Full ROM, No pedal edema, Joint swelling Neurologic/Psychiatric: positive: Oriented x3, CN's nml (2-12), Motor nml, Sensation nml, Mood/affect nml, Sensory loss Reflexes: Bicep (R): 3+, Bicep (L): 3+, Ankle (R): 3+, Ankle (L): 3+ - LABS Result Diagrams: 01/17/20 22:23 01/18/20 11:00 - FOLLOW UP Follow Up: See PCP within one week - TIME SPENT Time Spent in Discharge (Minutes): 55
[2020-01-18] MEDS ORDERED: hydroCHLOROthiazide 25 MG TABLET PO SCH (12:24)
[2020-01-18] MEDS ORDERED: hydrALAZINE 25 MG TABLET PO ONE (13:56)
[2020-01-18 14:10] VITALS: BP 145/73
[2020-01-18] MEDS ORDERED: ATORVASTATIN 40 MG TABLET PO SCH (21:00)
== END 2020-01-18 14:59 | disposition home or self-care (01) ==
LOC: ED 21:01 → MS2 01-18 04:03
PROVIDERS: ADMIT Specialist; ATTEND Nurse Practitioner
DX: G45.9 Transient cerebral ischemic attack, unspecified (principal); I10 Essential (primary) hypertension; E87.6 Hypokalemia; R00.1 Bradycardia, unspecified; F03.90 Unspecified dementia, unspecified severity, without behavioral disturbance, psychotic disturbance, mood disturbance, and anxiety; K59.09 Other constipation; G89.29 Other chronic pain; M54.9 Dorsalgia, unspecified; Z86.73 Personal history of transient ischemic attack (TIA), and cerebral infarction without residual deficits; Z79.82 Long term (current) use of aspirin; Z79.899 Other long term (current) drug therapy; Z90.49 Acquired absence of other specified parts of digestive tract; Z85.038 Personal history of other malignant neoplasm of large intestine
CPT/HCPCS: 36415; 70450; 70496; 70498; 70551; 80053; 83690; 84132; 84484; 85025; 85610; 93005; 93306; 97161; 99284; 99285; A9270; G0378; Q9967

== ENCOUNTER 2020-04-11 18:49 | Outpatient (CLI) | payer MEDICARE, OTHER | END 2020-04-11 18:50 | disposition home or self-care (01) | LOC: COV 18:49 | PROVIDERS: ATTEND Family Medicine | DX: M79.10 Myalgia, unspecified site (principal); R53.83 Other fatigue | CPT/HCPCS: 81599 ==

== ENCOUNTER 2020-05-29 12:19 | Outpatient (CLI) | payer MEDICARE, OTHER ==
[2020-05-29 13:33] LABS: CALCIUM 9.5 mg/dL (8.5-10.3); CREATININE 0.6 mg/dL (0.4-1.0)
== END 2020-05-29 12:20 | disposition home or self-care (01) ==
LOC: LAB 12:19
PROVIDERS: ATTEND Nurse Practitioner Family
DX: I10 Essential (primary) hypertension (principal)
CPT/HCPCS: 36415; 80048

== ENCOUNTER 2020-10-18 08:56 | Outpatient (CLI) | payer MEDICARE, OTHER ==
[2020-10-18 13:05] LABS: BASOPHILS # (AUTO) 0.1 10^3/uL (0.0-0.1); BASOPHILS % (AUTO) 1.4 %; EOSINOPHILS # (AUTO) 0.1 10^3/uL (0.0-0.7); EOSINOPHILS % (AUTO) 3.4 %; HGB - HEMOGLOBIN 13.4 g/dL (12.0-16.0); LYMPHOCYTES # (AUTO) 1.3 10^3/uL (1.5-3.5); LYMPHOCYTES % (AUTO) 37.6 %; MEAN CORPUSCULAR HEMOGLOBIN 30.5 pg (27.0-31.0); MEAN CORPUSCULAR HGB CONC 32.4 g/dL (32.0-36.0); MEAN CORPUSCULAR VOLUME 93.9 fL (81.0-99.0); MEAN PLATELET VOLUME 9.5 fL (7.9-10.8); MONOCYTES # (AUTO) 0.2 10^3/uL (0.0-1.0); MONOCYTES % (AUTO) 6.9 %; NEUTROPHILS # (AUTO) 1.8 10^3/uL (1.5-6.6); NEUTROPHILS % (AUTO) 50.4 %; PLT - PLATELET COUNT 220 10^3/uL (130-450); RED CELL DISTRIBUTION WIDTH 12.8 % (12.0-15.0); WHITE BLOOD COUNT 3.5 x10^3/uL (4.8-10.8)
[2020-10-18 13:28] LABS: ALBUMIN 4.4 g/dL (3.2-5.5); ALBUMIN/GLOBULIN RATIO 1.7 (1.0-2.2); ALKALINE PHOSPHATASE 52 IU/L (42-121); ALT ALANINE AMINOTRANSFERASE 17 IU/L (10-60); AST ASPARTATE AMINOTRANSFERASE 20 IU/L (10-42); BILIRUBIN,TOTAL 0.7 mg/dL (0.2-1.0); BUN - BLOOD UREA NITROGEN 25 mg/dL (6-20); CALCIUM 9.4 mg/dL (8.5-10.3); CARBON DIOXIDE - CO2 27 mmol/L (21-32); CHLORIDE 101 mmol/L (101-111); CHOL/HDL RATIO 1.9 (<4.4); CHOLESTEROL 146 mg/dL; CREATININE 0.5 mg/dL (0.4-1.0); GLUCOSE 96 mg/dL (70-100); HDL CHOLESTEROL 75 mg/dL; SODIUM 136 mmol/L (135-145)
== END 2020-10-18 23:59 | disposition home or self-care (01) ==
LOC: LAB.WCP 08:56
PROVIDERS: ATTEND Physician Assistant Medical
DX: I63.9 Cerebral infarction, unspecified (principal); I10 Essential (primary) hypertension
CPT/HCPCS: 36415; 80053; 80061; 83721; 85025

== ENCOUNTER 2021-05-16 08:00 | Outpatient (CLI) | payer MEDICARE, OTHER ==
[2021-05-16 11:35] LABS: BASOPHILS # (AUTO) 0.1 10^3/uL (0.0-0.1); EOSINOPHILS # (AUTO) 0.1 10^3/uL (0.0-0.7); EOSINOPHILS % (AUTO) 3.7 %; HCT - HEMATOCRIT 43.7 % (37.0-47.0); HGB - HEMOGLOBIN 13.9 g/dL (12.0-16.0); LYMPHOCYTES # (AUTO) 1.3 10^3/uL (1.5-3.5); LYMPHOCYTES % (AUTO) 41.8 %; MEAN CORPUSCULAR HEMOGLOBIN 30.2 pg (27.0-31.0); MEAN CORPUSCULAR HGB CONC 31.8 g/dL (32.0-36.0); MEAN PLATELET VOLUME 9.8 fL (7.9-10.8); MONOCYTES # (AUTO) 0.2 10^3/uL (0.0-1.0); MONOCYTES % (AUTO) 7.4 %; NEUTROPHILS # (AUTO) 1.3 10^3/uL (1.5-6.6); NEUTROPHILS % (AUTO) 43.8 %; PLT - PLATELET COUNT 200 10^3/uL (130-450); RED CELL DISTRIBUTION WIDTH 12.8 % (12.0-15.0)
[2021-05-16 11:43] LABS: SLIDE REVIEW? Indicated
[2021-05-16 12:27] LABS: PLATELET ESTIMATE, MANUAL NORMAL (130-450,000) (NORMAL); PLATELET MORPHOLOGY NORMAL APPEARANCE (NORMAL); RBC MORPHOLOGY (MULTIPLE) NORMAL APPEARANCE (NORMAL)
[2021-05-16 12:39] LABS: ALBUMIN 4.8 g/dL (3.2-5.5); BILIRUBIN,TOTAL 1.2 mg/dL (0.2-1.0); CALCIUM 10.1 mg/dL (8.5-10.3); CREATININE 0.7 mg/dL (0.4-1.0); POTASSIUM 3.7 mmol/L (3.5-5.0); TOTAL PROTEIN 7.2 g/dL (6.7-8.2)
== END 2021-05-16 23:59 | disposition home or self-care (01) ==
LOC: LAB.WCP 08:00
PROVIDERS: ATTEND Physician Assistant Medical
DX: I10 Essential (primary) hypertension (principal)
CPT/HCPCS: 36415; 80053; 85025

== ENCOUNTER 2021-06-30 10:32 | Outpatient (CLI) | payer MEDICARE, OTHER ==
--- NOTE | 2021-07-01 13:56 | Mammography Report ---
BILATERAL DIGITAL SCREENING MAMMOGRAM: 06/30/2021 CLINICAL: Family history of breast cancer. Routine screening. Comparison is made to exams dated: 05/25/2016 mammogram, 06/08/2013 mammogram, 04/28/2012 mammogram, an d 04/14/2011 mammogram - [facility]. The tissue of both breasts is extremely dense, which lowers the sensitivity of mammography. There are calcifications in both breasts. There also are post operative findings in the right breast . No significant masses, calcifications, or other findings are seen in either breast. There has been no significant interval change. IMPRESSION: BENIGN There is no mammographic evidence of malignancy. A 1 year screening mammogram is recommended. This exam was interpreted at Station ID: [id number]. NOTE: For mammograms, a report in lay terms will be sent to the patient. Approximately 15% of breast malignancies will not be visualized mammographically. In the management of a palpable breast mass, a negative mammogram must not discourage biopsy of a clinically suspicious lesion. Electronically Signed By: Hunter Moore M.D. aty/:06/30/2021 13:17:42 ACR BI-RADS Category 2: Benign Finding(s) 3342F PARENCHYMAL PATTERN: (VD) - The breast(s) demonstrate(s) extremely dense parenchyma, limiting the sen sitivity of mammography. BI-RADS CATEGORY: (2) - 2 RECOMMENDATION: (ANNUAL) - Recommend routine annual screening mammography. [id number] 1 year screening LATERALITY: (B)
== END 2021-06-30 10:33 | disposition home or self-care (01) ==
LOC: DI.N 10:32
DX: Z12.31 Encounter for screening mammogram for malignant neoplasm of breast (principal); Z80.3 Family history of malignant neoplasm of breast

== ENCOUNTER 2021-11-10 09:10 | Outpatient (CLI) | payer MEDICARE, OTHER ==
[2021-11-10 12:25] LABS: BASOPHILS # (AUTO) 0.1 10^3/uL (0.0-0.1); EOSINOPHILS # (AUTO) 0.1 10^3/uL (0.0-0.7); EOSINOPHILS % (AUTO) 3.4 %; HCT - HEMATOCRIT 43.4 % (37.0-47.0); HGB - HEMOGLOBIN 14.4 g/dL (12.0-16.0); LYMPHOCYTES # (AUTO) 1.5 10^3/uL (1.5-3.5); LYMPHOCYTES % (AUTO) 36.6 %; MEAN CORPUSCULAR HEMOGLOBIN 31.4 pg (27.0-31.0); MEAN CORPUSCULAR HGB CONC 33.2 g/dL (32.0-36.0); MEAN CORPUSCULAR VOLUME 94.6 fL (81.0-99.0); MEAN PLATELET VOLUME 10.2 fL (7.9-10.8); MONOCYTES # (AUTO) 0.3 10^3/uL (0.0-1.0); MONOCYTES % (AUTO) 7.6 %; NEUTROPHILS % (AUTO) 50.2 %; PLT - PLATELET COUNT 214 10^3/uL (130-450); RED BLOOD COUNT 4.59 10^6/uL (4.20-5.40); RED CELL DISTRIBUTION WIDTH 12.8 % (12.0-15.0); WHITE BLOOD COUNT 4.1 x10^3/uL (4.8-10.8)
[2021-11-10 12:41] LABS: ALBUMIN 4.6 g/dL (3.2-5.5); ALBUMIN/GLOBULIN RATIO 1.7 (1.0-2.2); ALKALINE PHOSPHATASE 43 IU/L (42-121); ALT ALANINE AMINOTRANSFERASE 14 IU/L (10-60); AST ASPARTATE AMINOTRANSFERASE 21 IU/L (10-42); BILIRUBIN,TOTAL 1.1 mg/dL (0.2-1.0); BUN - BLOOD UREA NITROGEN 18 mg/dL (6-20); CALCIUM 9.7 mg/dL (8.5-10.3); CARBON DIOXIDE - CO2 30 mmol/L (21-32); CHLORIDE 100 mmol/L (101-111); CHOL/HDL RATIO 1.9 (<4.4); CHOLESTEROL 152 mg/dL; CREATININE 0.6 mg/dL (0.4-1.0); GFR - MDRD 95 (>89); GLUCOSE 102 mg/dL (70-100); HDL CHOLESTEROL 81 mg/dL; LDL CHOLESTEROL,CALCULATED 59 mg/dL; LDL/HDL RATIO 0.7 (<4.4); POTASSIUM 2.9 mmol/L (3.5-5.0); SODIUM 143 mmol/L (135-145); TOTAL PROTEIN 7.3 g/dL (6.7-8.2); TRIGLYCERIDES 62 mg/dL; VLDL CHOLESTEROL 12 mg/dL
== END 2021-11-10 23:59 | disposition home or self-care (01) ==
LOC: LAB.WCP 09:10
PROVIDERS: ATTEND Physician Assistant Medical
DX: I10 Essential (primary) hypertension (principal); I63.9 Cerebral infarction, unspecified
CPT/HCPCS: 36415; 80053; 80061; 83721; 85025

== ENCOUNTER 2021-12-08 08:00 | Outpatient (CLI) | payer MEDICARE, OTHER ==
[2021-12-08 12:44] LABS: CALCIUM 10.3 mg/dL (8.5-10.3); CREATININE 0.5 mg/dL (0.4-1.0); POTASSIUM 3.4 mmol/L (3.5-5.0)
== END 2021-12-08 23:59 ==
LOC: LAB.WCP 08:00
PROVIDERS: ATTEND Nurse Practitioner Family
DX: E87.6 Hypokalemia (principal)
CPT/HCPCS: 36415; 80048

== ENCOUNTER 2022-05-21 13:26 | Outpatient (CLI) | payer MEDICARE, OTHER ==
[2022-05-21 17:57] LABS: CALCIUM 9.9 mg/dL (8.5-10.3); CREATININE 0.6 mg/dL (0.4-1.0); POTASSIUM 3.8 mmol/L (3.5-5.0)
== END 2022-05-21 13:27 | disposition home or self-care (01) ==
LOC: LAB.N 13:26
PROVIDERS: ATTEND Physician Assistant Medical
DX: E87.6 Hypokalemia (principal)
CPT/HCPCS: 36415; 80048

== ENCOUNTER 2022-06-17 13:29 | Day surgery (SDC) | payer MEDICARE, OTHER ==
[2022-06-17 17:54] LABS: CALCIUM 10.1 mg/dL (8.5-10.3); CREATININE 0.5 mg/dL (0.4-1.0); POTASSIUM 4.1 mmol/L (3.5-5.0)
== END 2022-06-17 13:30 | disposition home or self-care (01) ==
LOC: LAB.N 13:29
PROVIDERS: ATTEND Physician Assistant Medical
DX: R63.4 Abnormal weight loss (principal)
CPT/HCPCS: 36415; 80048

== ENCOUNTER 2022-11-04 09:40 | Outpatient (CLI) | payer MEDICARE, OTHER ==
[2022-11-04 11:50] LABS: BASOPHILS # (AUTO) 0.1 10^3/uL (0.0-0.1); BASOPHILS % (AUTO) 1.9 %; EOSINOPHILS # (AUTO) 0.1 10^3/uL (0.0-0.7); EOSINOPHILS % (AUTO) 2.7 %; HCT - HEMATOCRIT 42.9 % (37.0-47.0); LYMPHOCYTES # (AUTO) 1.3 10^3/uL (1.5-3.5); LYMPHOCYTES % (AUTO) 35.2 %; MEAN CORPUSCULAR HEMOGLOBIN 31.2 pg (27.0-31.0); MEAN CORPUSCULAR HGB CONC 32.6 g/dL (32.0-36.0); MEAN CORPUSCULAR VOLUME 95.5 fL (81.0-99.0); MEAN PLATELET VOLUME 9.1 fL (7.9-10.8); MONOCYTES # (AUTO) 0.3 10^3/uL (0.0-1.0); MONOCYTES % (AUTO) 7.7 %; NEUTROPHILS % (AUTO) 52.2 %; PLT - PLATELET COUNT 225 10^3/uL (130-450); RED BLOOD COUNT 4.49 10^6/uL (4.20-5.40); RED CELL DISTRIBUTION WIDTH 12.3 % (12.0-15.0); WHITE BLOOD COUNT 3.8 x10^3/uL (4.8-10.8)
[2022-11-04 12:27] LABS: ALBUMIN 4.7 g/dL (3.2-5.5); ALBUMIN/GLOBULIN RATIO 1.7 (1.0-2.2); ALKALINE PHOSPHATASE 44 IU/L (42-121); ALT ALANINE AMINOTRANSFERASE 20 IU/L (10-60); AST ASPARTATE AMINOTRANSFERASE 25 IU/L (10-42); BILIRUBIN,TOTAL 0.8 mg/dL (0.2-1.0); BUN - BLOOD UREA NITROGEN 25 mg/dL (6-20); CALCIUM 9.9 mg/dL (8.5-10.3); CARBON DIOXIDE - CO2 30 mmol/L (21-32); CHLORIDE 95 mmol/L (101-111); CHOL/HDL RATIO 1.9 (<4.4); CHOLESTEROL 146 mg/dL; CREATININE 0.6 mg/dL (0.4-1.0); GFR - MDRD 95 (>89); GLUCOSE 100 mg/dL (70-100); HDL CHOLESTEROL 77 mg/dL; LDL CHOLESTEROL,CALCULATED 57 mg/dL; LDL/HDL RATIO 0.7 (<4.4); POTASSIUM 4.6 mmol/L (3.5-5.0); SODIUM 133 mmol/L (135-145); TOTAL PROTEIN 7.4 g/dL (6.7-8.2); TRIGLYCERIDES 60 mg/dL; VLDL CHOLESTEROL 12 mg/dL
== END 2022-11-04 09:41 | disposition home or self-care (01) ==
LOC: LAB.N 09:40
PROVIDERS: ATTEND Physician Assistant Medical
DX: I10 Essential (primary) hypertension (principal); K21.9 Gastro-esophageal reflux disease without esophagitis
CPT/HCPCS: 36415; 80053; 80061; 83721; 85025

== ENCOUNTER 2022-11-27 14:49 | Emergency (ER) | payer MEDICARE, OTHER ==
[2022-11-27] MEDS ORDERED: HYDROmorphone 1 MG/ML CARPUJECT IVP STA (15:05)
[2022-11-27] MEDS ORDERED: ONDANSETRON 4 MG/2 ML VIAL IVP STA (15:05)
[2022-11-27] MEDS ORDERED: SODIUM CHLORIDE 0.9% 1,000 ML IV STA ×2 (15:05)
--- NOTE | 2022-11-27 15:08 | ED Physician Documentation ---
PD HPI ABD PAIN - Stated complaint Stated Complaint: L ABD PX/VOMITING - Chief complaint Chief Complaint: Abd Pain - History obtained from History obtained from: Patient, Family - Additional information Additional information: Patient with history of stroke, colon cancer status postresection, appendectomy, multiple C-sections, sounds like she has had an SBO once. She developed lower abdominal pain yesterday with vomiting and now dry heaving and the pain became more generalized. She is not able to eat or drink and she has not had any bowel output. No fevers. Pain is now severe. She is here with her daughter who is at the bedside. 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 HEENT: Cataracts - Present Medications Home Medications: Ambulatory Orders Medication Instructions Recorded Confirmed lisinopriL [Zestril] 20 mg PO QPM 01/21/14 01/18/20 Aspirin 325 mg PO DAILY 01/18/20 01/18/20 Atorvastatin Calcium 10 mg PO QPM 01/18/20 01/18/20 Calcium Carbonate/Vitamin D3 1 tab PO DAILY 01/18/20 01/18/20 [Caltrate 600 Plus D3 Tablet] Cetirizine [ZyrTEC] 5 - 10 mg PO BID MDD 15 mg 01/18/20 01/18/20 Docusate Sodium 250Mg Capsule 250 mg PO BID 01/18/20 01/18/20 [Colace 250Mg Capsule] Hydralazine HCl 25 mg PO TID #90 tablet 01/18/20 Lisinopril/Hydrochlorothiazide 1 tab PO DAILY 01/18/20 01/18/20 [Lisinopril-Hctz 20-25 mg Tab] Omeprazole Magnesium 20 mg PO DAILY 01/18/20 01/18/20 - Allergies Allergies/Adverse Reactions: Allergies Allergy/AdvReac Type Severity Reaction Status Date / Time aspirin AdvReac bleeding Verified 11/27/22 14:58 - Social History Does the pt smoke?: No Smoking Status: Never smoker Does the pt drink ETOH?: No Does the pt have substance abuse?: No - Immunizations Immunizations are current?: Yes - POLST Patient has POLST: No POLST Status: Full Code PD ED PE NORMAL - Vitals Vital signs reviewed: Yes - General General: Alert and oriented X 3, Other (She appears quite uncomfortable) - HEENT HEENT: PERRL, EOMI - Neck Neck: Supple, no meningeal sign, No bony TTP - Cardiac Cardiac: RRR, No murmur - Respiratory Respiratory: No respiratory distress, Clear bilaterally - Abdomen Abdomen: Other (Absent bowel sounds with significant diffuse tenderness but no surgical signs.) - Back Back: No CVA TTP, No spinal TTP - Derm Derm: Normal color, Warm and dry - Extremities Extremities: No edema, No calf tenderness / cord - Neuro Neuro: Alert and oriented X 3, Normal speech Results - Vitals Vitals: Vital Signs - 24 hr 11/27/22 11/27/22 14:53 20:28 Temperature 36.4 C L Heart Rate 114 H 73 Respiratory 18 18 Rate Blood Pressure 109/44 L 132/67 H O2 Saturation 99 94 Oxygen O2 Source Room air - Labs Labs: Laboratory Tests 11/27/22 11/27/22 11/27/22 15:12 15:12 15:12 WBC 8.4 RBC 4.97 Hgb 15.3 Hct 45.4 MCV 91.3 MCH 30.8 MCHC 33.7 RDW 12.5 Plt Count 259 MPV 8.4 Neut # (Auto) 6.2 Lymph # (Auto) 1.5 Refugio # (Auto) 0.6 Eos # (Auto) 0.0 Baso # (Auto) 0.1 Absolute Nucleated RBC 0.00 Nucleated RBC % 0.0 Sodium 130 L Potassium 4.5 Chloride 90 L Carbon Dioxide 24 Anion Gap 16.0 H BUN 48 H Creatinine 0.9 Estimated GFR (MDRD) 59 L Glucose 142 H Lactic Acid 2.1 Calcium 10.5 H Total Bilirubin 2.1 H AST 25 ALT 21 Alkaline Phosphatase 36 L Total Protein 8.0 Albumin 5.1 Globulin 2.9 Albumin/Globulin Ratio 1.8 Lipase 42 SARS-CoV-2 (PCR) 11/27/22 19:00 WBC RBC Hgb Hct MCV MCH MCHC RDW Plt Count MPV Neut # (Auto) Lymph # (Auto) Refugio # (Auto) Eos # (Auto) Baso # (Auto) Absolute Nucleated RBC Nucleated RBC % Sodium Potassium Chloride Carbon Dioxide Anion Gap BUN Creatinine Estimated GFR (MDRD) Glucose Lactic Acid Calcium Total Bilirubin AST ALT Alkaline Phosphatase Total Protein Albumin Globulin Albumin/Globulin Ratio Lipase SARS-CoV-2 (PCR) NOT DETECTED - Rads (name of study) CT of the abdomen pelvis demonstrates SBO Radiology: Final report received, EMP read indepedently PD Medical Decision Making - ED course ED course: 87-year-old woman presents with signs and symptoms consistent with SBO, proven on CT. Lab work showing changes consistent with dehydration, otherwise relatively unremarkable. Supportive daughter at bedside. Unfortunately we do not have surgery on-call today and the hospital is full. Also, unfortunately, every other local hospital is full. As such we will have to do supportive care in the emergency department pending either clinical improvement or a bed available at another local hospital. The [facility] was contacted for potential transfer. NG tube and enema and IV fluids ordered. She is now boarding in the emergency department for clinical improvement or transfer given lack of surgery consultation. I did discuss with the patient goals of care, specifically regarding her advanced age and the potential need for surgery although she does not clearly need surgery at this point. She says she would like aggressive care and surgery if needed. Signed out to Dr Downing at 10pm shift change on 11/27/22. Departure - Departure Clinical Impression: Small bowel obstruction Condition: Serious
[2022-11-27] MEDS ORDERED: iohexoL-300 100 ML VIAL ONE (15:16)
[2022-11-27 15:18] LABS: BASOPHILS # (AUTO) 0.1 10^3/uL (0.0-0.1); BASOPHILS % (AUTO) 0.7 %; EOSINOPHILS % (AUTO) 0.5 %; HCT - HEMATOCRIT 45.4 % (37.0-47.0); HGB - HEMOGLOBIN 15.3 g/dL (12.0-16.0); LYMPHOCYTES # (AUTO) 1.5 10^3/uL (1.5-3.5); LYMPHOCYTES % (AUTO) 18.1 %; MEAN CORPUSCULAR HEMOGLOBIN 30.8 pg (27.0-31.0); MEAN CORPUSCULAR HGB CONC 33.7 g/dL (32.0-36.0); MEAN CORPUSCULAR VOLUME 91.3 fL (81.0-99.0); MEAN PLATELET VOLUME 8.4 fL (7.9-10.8); MONOCYTES # (AUTO) 0.6 10^3/uL (0.0-1.0); MONOCYTES % (AUTO) 6.7 %; NEUTROPHILS # (AUTO) 6.2 10^3/uL (1.5-6.6); NEUTROPHILS % (AUTO) 73.8 %; PLT - PLATELET COUNT 259 10^3/uL (130-450); RED BLOOD COUNT 4.97 10^6/uL (4.20-5.40); RED CELL DISTRIBUTION WIDTH 12.5 % (12.0-15.0); WHITE BLOOD COUNT 8.4 x10^3/uL (4.8-10.8)
[2022-11-27 15:31] LABS: ALBUMIN 5.1 g/dL (3.2-5.5); ALBUMIN/GLOBULIN RATIO 1.8 (1.0-2.2); BILIRUBIN,TOTAL 2.1 mg/dL (0.2-1.0); CALCIUM 10.5 mg/dL (8.5-10.3); CREATININE 0.9 mg/dL (0.4-1.0); POTASSIUM 4.5 mmol/L (3.5-5.0)
[2022-11-27] MEDS ORDERED: METOCLOPRAMIDE 10 MG/2 ML VIAL IVP STA (15:55)
[2022-11-27] MEDS ORDERED: iohexoL-300 100 ML VIAL IVP ONE (17:00)
--- NOTE | 2022-11-27 17:23 | CT Report ---
PROCEDURE: ABDOMEN/PELVIS W INDICATIONS: IV only, low abd pain, vomiting, ?SBO CONTRAST: 100 omni 300 TECHNIQUE: After the administration of contrast, 5 mm thick sections acquired from the diaphragms to the sym physis. 5 mm thick coronal and sagittal reformats were acquired. For radiation dose reduction, the following was used: automated exposure control, adjustment of mA and/or kV according to patient size . COMPARISON: None. FINDINGS: Image quality: Excellent. ABDOMEN: Lung bases: Lung bases are clear. Heart size is normal. Solid organs: Liver and spleen are normal in size and enhancement. Gallbladder demonstrates prior c holecystectomy. Biliary system is non dilated. Pancreas enhances normally. No adrenal nodules. Ki dneys demonstrate normal size and enhancement, without hydronephrosis. Peritoneum and bowel: There is a small hiatal hernia. The stomach has a normal appearance. The small bowel contains fluid. No definite transition point is seen. Large bowel contains increased stool. Nodes and vessels: No retroperitoneal or mesenteric adenopathy by size criteria. Aorta and inferior vena cava are normal in size. Miscellaneous: No ventral hernias. PELVIS: Genitourinary: Bladder wall thickness is normal. Miscellaneous: No inguinal hernias or adenopathy. Bones: No suspicious bony lesions. No vertebral body compression fractures. There are multilevel de generative changes. Status post right hip replacement. IMPRESSION: Diffusely dilated small bowel consistent with small bowel obstruction. No definite roblero sition point is seen. Reviewed by: Hammad Stratton on 11/27/2022 5:22 PM [facility] Approved by: Hammad Stratton on 11/27/2022 5:22 PM PST Station ID: [id number]
[2022-11-27] MEDS: HYDROmorphone 1 MG/ML CARPUJECT IVP PRN (19:58)
[2022-11-27] MEDS: ONDANSETRON 4 MG/2 ML VIAL IVP PRN (19:58)
--- NOTE | 2022-11-27 21:19 | XRAY Report ---
PROCEDURE: No-Charge 1V Abdomen INDICATIONS: NG tube placement TECHNIQUE: 1 view of the abdomen was acquired. COMPARISON: Correlation is made with CT examination, 11/27/2022. FINDINGS: Surgical changes and devices: A gastric tube has been placed, the tip overlying the mid stomach. The sidehole is seen below the level of the diaphragm. Cholecystectomy clips are seen. Bowel: No pneumoperitoneum. The bowel gas pattern is normal. Soft tissues: No masses; visualized solid organ contours appear normal in size. No suspicious abdom inal calcifications. Excreting contrast can be seen within the partially visualized urinary bladder. Bones: No suspicious bony abnormalities. Right hip arthroplasty hardware is partially seen. IMPRESSION: The tip of the gastric tube can be seen overlying the mid stomach, with the sidehole below the level of the diaphragm. Reviewed by: Mathew Chase MD on 11/27/2022 8:17 PM [facility] Approved by: Mathew Chase MD on 11/27/2022 8:17 PM [facility] Station ID: [id number]
[2022-11-27] MEDS: METOCLOPRAMIDE 10 MG/2 ML VIAL IVP PRN (22:10)
[2022-11-28] MEDS ORDERED: ONDANSETRON 4 MG/2 ML VIAL IVP STA (01:05)
[2022-11-28] MEDS ORDERED: SODIUM CHLORIDE 0.9% 1,000 ML IV STA (01:05)
[2022-11-28] MEDS: HYDROmorphone 1 MG/ML CARPUJECT IVP PRN ×2 (01:11→11:35)
[2022-11-28 05:02] LABS: BASOPHILS % (AUTO) 0.3 %; HGB - HEMOGLOBIN 12.4 g/dL (12.0-16.0); LYMPHOCYTES # (AUTO) 0.8 10^3/uL (1.5-3.5); LYMPHOCYTES % (AUTO) 11.5 %; MEAN CORPUSCULAR HEMOGLOBIN 30.7 pg (27.0-31.0); MEAN CORPUSCULAR HGB CONC 32.6 g/dL (32.0-36.0); MEAN CORPUSCULAR VOLUME 94.1 fL (81.0-99.0); MEAN PLATELET VOLUME 8.7 fL (7.9-10.8); MONOCYTES # (AUTO) 0.3 10^3/uL (0.0-1.0); MONOCYTES % (AUTO) 4.2 %; NEUTROPHILS # (AUTO) 5.6 10^3/uL (1.5-6.6); NEUTROPHILS % (AUTO) 83.7 %; PLT - PLATELET COUNT 208 10^3/uL (130-450); RED BLOOD COUNT 4.04 10^6/uL (4.20-5.40); RED CELL DISTRIBUTION WIDTH 12.5 % (12.0-15.0); WHITE BLOOD COUNT 6.7 x10^3/uL (4.8-10.8)
[2022-11-28 05:08] LABS: CALCIUM 8.6 mg/dL (8.5-10.3); CREATININE 0.7 mg/dL (0.4-1.0); POTASSIUM 3.1 mmol/L (3.5-5.0)
[2022-11-28] MEDS ORDERED: DEXTROSE 5%-0.45% NACL 1,000 ML IV STA (08:16)
[2022-11-28] MEDS ORDERED: POTASSIUM CHLOR 10 MEQ/100 ML 10 MEQ/100 ML BAG IV STA (08:16)
[2022-11-28] MEDS: PANTOPRAZOLE 40 MG VIAL IVP SCH (09:18)
--- NOTE | 2022-11-28 11:48 | ED Physician Documentation ---
ED Addendum - Addendum Addendum: 11/28/22 11:47 Patient seen and examined at bedside, her son is with her. She still having a lot of pain but had a large bowel movement overnight reportedly. She has bowel sounds on exam and is nontender but appears to be in pain. NG tube in place to low intermittent wall suction. She wants some oral fluids and will start off with some water and repeat an x-ray.
[2022-11-28] MEDS: METOCLOPRAMIDE 10 MG/2 ML VIAL IVP PRN (12:19)
--- NOTE | 2022-11-28 13:18 | XRAY Report ---
PROCEDURE: Abdomen 2 View X-Ray INDICATIONS: reeval sbo TECHNIQUE: 2 views of the abdomen were acquired. COMPARISON: 11/27/2022 FINDINGS: Surgical changes and devices: Nasogastric tube in the stomach. Surgical clips present right upper lucio drant. Right hip prosthesis in good position Bowel: No pneumoperitoneum. The bowel gas pattern is normal. Single loop of small bowel gaseous di stention noted in the left flank Soft tissues: No masses; visualized solid organ contours appear normal in size. No suspicious abdom inal calcifications. Contrast in the lumen of the bladder Bones: No suspicious bony abnormalities. Generalized decreased osseous mineralization. IMPRESSION: Nonspecific distended small bowel loop in the left flank without air-fluid levels or free air Reviewed by: Benny Zhang MD on 11/28/2022 12:17 PM [facility] Approved by: Benny Zhang MD on 11/28/2022 12:17 PM [facility] Station ID: [id number]
[2022-11-28] MEDS: ONDANSETRON 4 MG/2 ML VIAL IVP PRN (16:56)
[2022-11-29] MEDS ORDERED: LORazepam 2 MG/ML VIAL IVP STA (01:46)
--- NOTE | 2022-11-29 01:46 | ED Physician Documentation ---
ED Addendum - Addendum Addendum: 11/29/22 01:45 Called into the patient's room for pain in the right neck. The patient requested pain medication or something to sleep as she was very uncomfortable. She is not having problems with pain in her stomach she has had continued output from the NG tube. She has had about 1000 out since the night prior. She had a soft nondistended stomach and no pain. No nausea. I elected to remove the patient's NG tube and she was quite grateful for this. We have administered some Ativan for sleep.
[2022-11-29] MEDS: PANTOPRAZOLE 40 MG VIAL IVP SCH (09:28)
[2022-11-29 10:16] VITALS: BP 159/92
--- NOTE | 2022-11-29 10:34 | ED Physician Documentation ---
ED Addendum - Addendum Addendum: 11/29/22 10:31 The patient has had the NG tube outs since last evening. She has been doing well with sips of fluids/water. She did progress to some protein drink this morning after I met with her. She is able to do approximately 6 ounces of protein supplement. She states she had a very mild cramping in the abdomen that lasted for a few minutes and then improved. She did not have any nausea. She is feeling strongly motivated for going home. Her abdomen is soft and nontender. Objective: The patient is awake alert and conversant. Abdomen is soft and nontender without any distention. Bowel sounds are present. She states she did have some flatus last night and this morning. She is tolerating liquids. Disposition: The patient is discharged home in stable condition Diagnoses: 1. Small bowel obstruction 2. Abdominal pain and vomiting Plan patient is to have a liquid diet and soft food such as protein drinks, broth, electrolyte solutions for the remainder of today and progress diet beyond that as tolerated tomorrow. Tylenol if needed for pains. Return if worsening symptoms again.
== END 2022-11-29 11:50 | disposition home or self-care (01) ==
LOC: ED 14:49
DX: K56.609 Unspecified intestinal obstruction, unspecified as to partial versus complete obstruction (principal); Z20.822 Contact with and (suspected) exposure to COVID-19; Z76.4 Other boarder to healthcare facility
CPT/HCPCS: 36415; 74018; 74019; 74177; 80048; 80053; 83605; 83690; 85025; 87635; 96361; 96374; 96375; 96376; 99283; 99284; J1170; J2060; J2765; Q9967

== ENCOUNTER 2022-12-03 15:02 | Outpatient (CLI) | payer MEDICARE, OTHER ==
--- NOTE | 2022-12-03 15:57 | XRAY Report ---
PROCEDURE: Abdomen 2 View X-Ray INDICATIONS: SBO TECHNIQUE: 2 views of the abdomen were acquired. COMPARISON: X-ray abdomen 11/28/2022 FINDINGS: Surgical changes and devices: None. Bowel: No pneumoperitoneum. The bowel gas pattern is overall nonspecific. Previous appearance of di lated fluid-filled small bowel levels remain present although markedly decreased compared to prior ex am. There is significant colonic stool. Soft tissues: No masses; visualized solid organ contours appear normal in size. No suspicious abdom inal calcifications. Bones: No suspicious bony abnormalities. IMPRESSION: Significant colonic stool consistent with constipation. Very minimal residual small lucien l obstruction versus ileus is noted. Reviewed by: Libra Reid MD on 12/03/2022 3:56 PM PST Approved by: Libra Reid MD on 12/03/2022 3:56 PM PST Station ID: [id number]
== END 2022-12-03 15:03 | disposition home or self-care (01) ==
LOC: DI 15:02
PROVIDERS: ATTEND Physician Assistant Medical
DX: K56.609 Unspecified intestinal obstruction, unspecified as to partial versus complete obstruction (principal)

== ENCOUNTER 2023-01-21 10:39 | Outpatient (CLI) | payer MEDICARE, OTHER ==
[2023-01-21 11:23] LABS: CALCIUM 9.9 mg/dL (8.5-10.3); CREATININE 0.6 mg/dL (0.4-1.0); POTASSIUM 4.1 mmol/L (3.5-5.0)
--- NOTE | 2023-01-21 21:07 | DEXA Report ---
PROCEDURE: Dexa Spine and/or Hip INDICATIONS: POST MENOPAUSAL TECHNIQUE: Dual energy x-ray absorptiometry (DXA) was performed on a Sound[employer] System. Regions measur ed are the AP Spine, femoral neck, and if needed forearm. COMPARISON: DEXA 05/25/2016. FINDINGS: Lumbar Spine: L1-L4 Bone Mineral Density 0.707 g/cm/cm, T score -3.9, osteoporosis. There is significant interval increas e. Left Femoral Neck: Bone Mineral Density 0.655 g/cm/cm, T score -2.8, osteoporosis Left Hip: Bone Mineral Density 0.613 g/cm/cm, T score -3.1, osteoporosis. There is significant interval decrea se. (T score greater or equal to -1.0: NORMAL) (T score from -1.1 to -2.4: OSTEOPENIA) (T score less than or equal to -2.5 to: OSTEOPOROSIS) Impression: Osteoporosis. There is significant interval decrease at the left total hip. There is significant interval increase in bone mineral density at the lumbar spine. Patients with diagnosis of osteoporosis or osteopenia should have regular bone mineral density assess ment. For those eligible for Medicare, routine testing is allowed once every 2 years. Testing frequ ency can be increased for patients who have rapidly progressing disease or for those who are receivin g medical therapy to restore bone mass. Reviewed by: Isac Leija MD on 01/21/2023 9:06 PM PST Approved by: Isac Leija MD on 01/21/2023 9:06 PM PST Station ID: [id number]
== END 2023-01-21 10:40 | disposition home or self-care (01) ==
LOC: DI 10:39
PROVIDERS: ATTEND Physician Assistant Medical
DX: M81.0 Age-related osteoporosis without current pathological fracture (principal); E87.6 Hypokalemia; Z78.0 Asymptomatic menopausal state
CPT/HCPCS: 36415; 80048

== ENCOUNTER 2023-07-14 19:59 | Inpatient (IN) | payer MEDICARE, OTHER ==
[2023-07-14] MEDS ORDERED: ONDANSETRON 4 MG/2 ML VIAL IVP STA (20:07)
[2023-07-14] MEDS ORDERED: SODIUM CHLORIDE 0.9% 1,000 ML IV STA (20:07)
--- NOTE | 2023-07-14 20:09 | ED Physician Documentation ---
PD HPI ABD PAIN - Stated complaint Stated Complaint: VOMITING, STOMACH PX - History obtained from History obtained from: Patient - Additional information Additional information: This is a donal 87-year-old woman who about 20 years ago had colon cancer with resection, she also had remotely a stroke, appendectomy, multiple C-sections and has had a couple of conservatively managed bowel obstructions most recently at [facility] 's of this year where she was in our emergency department for a few days managed nonoperatively given lack of hospital beds and did well. 2 days ago she developed abdominal bloating, but did not think she had a bowel obstruction because she had a large bowel movement. Subsequently she has not had any bowel movements more flatus and still has pain but is vomiting a lot today. No fevers. No urinary complaints. 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 HEENT: Cataracts - Present Medications Home Medications: Ambulatory Orders Medication Instructions Recorded Confirmed lisinopriL [Zestril] 20 mg PO QPM 01/21/14 07/14/23 Aspirin 325 mg PO DAILY 01/18/20 07/14/23 Atorvastatin Calcium 10 mg PO QPM 01/18/20 07/14/23 Calcium Carbonate/Vitamin D3 1 tab PO DAILY 01/18/20 07/14/23 [Caltrate 600 Plus D3 Tablet] Cetirizine [ZyrTEC] 5 - 10 mg PO BID MDD 15 mg 01/18/20 07/14/23 Docusate Sodium 250Mg Capsule 250 mg PO BID 01/18/20 07/14/23 [Colace 250Mg Capsule] Lisinopril/Hydrochlorothiazide 1 tab PO DAILY 01/18/20 07/14/23 [Lisinopril-Hctz 20-25 mg Tab] polyethylene glycoL 3350(BULK) 17 gm PO DAILY PRN #1 each 11/29/22 07/14/23 [Miralax] Aspirin [Pearl] 325 mg PO DAILY 07/14/23 07/14/23 Hydralazine HCl 25 mg PO BID 07/14/23 07/14/23 Pantoprazole Sodium 20 mg PO DAILY 07/14/23 07/14/23 Potassium Chloride 10 meq PO QPM 07/14/23 07/14/23 Vits A,C,E/Lutein/Minerals [Eye 1 tab PO BID 07/14/23 07/14/23 Health Plus Lutein Tablet] - Allergies Allergies/Adverse Reactions: Allergies Allergy/AdvReac Type Severity Reaction Status Date / Time aspirin AdvReac bleeding Verified 11/27/22 14:58 - Social History Does the pt smoke?: No Smoking Status: Never smoker Does the pt drink ETOH?: No Does the pt have substance abuse?: No - Immunizations Immunizations are current?: Yes - POLST Patient has POLST: No POLST Status: Full Code PD ED PE NORMAL - Vitals Vital signs reviewed: Yes - General General: Alert and oriented X 3, No acute distress - Abdomen Abdomen: Other (She actually has hyperactive bowel sounds and there is no tenderness. There may be slight bloating. No surgical signs.) - Back Back: No CVA TTP, No spinal TTP - Derm Derm: Normal color, Warm and dry - Extremities Extremities: No edema, No calf tenderness / cord - Neuro Neuro: Alert and oriented X 3, Normal speech Results - Vitals Vitals: Vital Signs - 24 hr 07/14/23 07/14/23 07/14/23 20:00 20:18 21:38 Temperature 36.9 C Heart Rate 78 70 63 Respiratory 16 21 24 Rate Blood Pressure 159/114 H 163/94 H 174/92 H O2 Saturation 99 98 99 Oxygen O2 Source Room air - Labs Labs: Laboratory Tests 07/14/23 07/14/23 07/14/23 20:15 20:15 22:00 WBC 7.0 RBC 4.74 Hgb 14.5 Hct 43.1 MCV 90.9 MCH 30.6 MCHC 33.6 RDW 12.1 Plt Count 272 MPV 8.9 Neut # (Auto) 5.4 Lymph # (Auto) 1.0 L [place] # (Auto) 0.4 Eos # (Auto) 0.0 Baso # (Auto) 0.1 Absolute Nucleated RBC 0.00 Nucleated RBC % 0.0 Sodium 134 L Potassium 3.0 L Chloride 94 L Carbon Dioxide 27 Anion Gap 13.0 BUN 19 Creatinine 0.6 Estimated GFR (MDRD) 95 Glucose 135 H Calcium 9.9 Total Bilirubin 1.2 H AST 26 ALT 20 Alkaline Phosphatase 40 L Total Protein 7.6 Albumin 4.6 Globulin 3.0 Albumin/Globulin Ratio 1.5 Lipase 33 Urine Color YELLOW Urine Clarity CLEAR Urine pH 8.0 H Ur Specific [place] 1.010 Urine Protein 30 H Urine Glucose (UA) NEGATIVE Urine Ketones TRACE Urine Occult Blood NEGATIVE Urine Nitrite NEGATIVE Urine Bilirubin NEGATIVE Urine Urobilinogen 1 (NORMAL) Ur Leukocyte Esterase NEGATIVE Urine RBC None Seen Urine WBC 0-3 Ur Squamous Epith Cells FEW Squamous Amorphous Sediment Few Urine Bacteria Rare Ur Microscopic Review INDICATED Urine Culture Comments NOT INDICATED - Rads (name of study) CT abdomen pelvis demonstrating SBO with transition in the left, small amount of free fluid, constipation. Relevant Findings:: Final report received, EMP independent interpretation of test PD Medical Decision Making - ED course ED course: 87-year-old woman with history of small bowel obstructions presents with symptoms concerning for same. She does have bowel sounds though. CT imaging demonstrates SBO and I discussed the case by phone with Dr. Milian, our on-call surgeon approximate 11 PM. She defers to medicine for admission and will follow along. Agrees that based on her symptomatology at this point probably does not need an NG tube. Telehealth consultation for admission placed at 11:09 PM. Departure - Departure Disposition: [facility] DC/Marilyn Clinical Impression: Small bowel obstruction Condition: Fair
[2023-07-14 20:28] LABS: BASOPHILS # (AUTO) 0.1 10^3/uL (0.0-0.1); EOSINOPHILS % (AUTO) 0.3 %; HCT - HEMATOCRIT 43.1 % (37.0-47.0); HGB - HEMOGLOBIN 14.5 g/dL (12.0-16.0); LYMPHOCYTES % (AUTO) 14.8 %; MEAN CORPUSCULAR HEMOGLOBIN 30.6 pg (27.0-31.0); MEAN CORPUSCULAR HGB CONC 33.6 g/dL (32.0-36.0); MEAN CORPUSCULAR VOLUME 90.9 fL (81.0-99.0); MEAN PLATELET VOLUME 8.9 fL (7.9-10.8); MONOCYTES # (AUTO) 0.4 10^3/uL (0.0-1.0); NEUTROPHILS # (AUTO) 5.4 10^3/uL (1.5-6.6); NEUTROPHILS % (AUTO) 77.5 %; PLT - PLATELET COUNT 272 10^3/uL (130-450); RED BLOOD COUNT 4.74 10^6/uL (4.20-5.40); RED CELL DISTRIBUTION WIDTH 12.1 % (12.0-15.0)
[2023-07-14 20:39] LABS: ALBUMIN 4.6 g/dL (3.2-5.5); ALBUMIN/GLOBULIN RATIO 1.5 (1.0-2.2); BILIRUBIN,TOTAL 1.2 mg/dL (0.2-1.0); CALCIUM 9.9 mg/dL (8.5-10.3); CREATININE 0.6 mg/dL (0.4-1.0); TOTAL PROTEIN 7.6 g/dL (6.7-8.2)
[2023-07-14] MEDS ORDERED: POTASSIUM CHLOR 10 MEQ/100 ML 10 MEQ/100 ML BAG IV STA (20:43)
[2023-07-14] MEDS ORDERED: polyethylene glycoL 3350 17 GM PACKET PO STA (21:36)
[2023-07-14] MEDS ORDERED: bisacodyL 5 MG TABLET PO STA (21:36)
[2023-07-14] MEDS ORDERED: iohexoL-300 100 ML VIAL IVP ONE (21:45)
[2023-07-14 22:13] LABS: BILIRUBIN,URINE NEGATIVE (NEGATIVE); GLUCOSE, URINE (UA) NEGATIVE (NEGATIVE); KETONES,URINE (UA) TRACE mg/dL (NEGATIVE); LEUKOCYTE ESTERASE, URINE NEGATIVE (NEGATIVE); NITRITE,URINE NEGATIVE (NEGATIVE); OCCULT BLOOD,URINE NEGATIVE (NEGATIVE); PROTEIN,URINE 30 mg/dL (NEGATIVE); UROBILINOGEN,URINE 1 (NORMAL) E.U./dL (NORMAL)
[2023-07-14 22:16] LABS: CLARITY,URINE CLEAR (CLEAR)
[2023-07-14 22:24] LABS: AMORPHOUS SEDIMENT,UR Few /LPF; BACTERIA,URINE Rare /HPF (None Seen); RBC,URINE None Seen /HPF (0-5); SQUAMOUS EPITHELIAL CELL,UR FEW Squamous (<= Few); WBC,URINE 0-3 /HPF (0-5)
--- NOTE | 2023-07-14 22:50 | CT Report ---
PROCEDURE: ABDOMEN/PELVIS W INDICATIONS: Abdominal pain, acute, nonlocalized CONTRAST: Omni 300 100ml TECHNIQUE: After the administration of intravenous contrast, 5 mm thick sections acquired from the diaphragms to the symphysis. 5 mm thick coronal and sagittal reformats were acquired. For radiation dose reducti on, the following was used: automated exposure control, adjustment of mA and/or kV according to kal ent size. COMPARISON: CT abdomen pelvis 11/27/2022 FINDINGS: Image quality: There is metallic streak artifact from patient's right hip prosthesis limiting evaluat ion. Lung bases: Unremarkable. Heart: Heart is at the upper limits of normal. There is a small hiatal hernia. ABDOMEN: Liver: No mass lesion. Gallbladder:Surgically absent. Biliary ducts: No biliary ductal dilatation. Pancreas: Unremarkable. Spleen: Normal in size. Adrenal Glands: No adrenal nodules. Kidneys and Ureters: No hydronephrosis. Stomach and Bowel:There are a few distended loops of small bowel measuring up to approximately 3.2 c m with associated small bowel fecalization distally extending to a transition point in the left hemip sathish as seen on axial series 2 image 44 and coronal series 5 image 22. More distal loops of small iris wel are nondistended. The colon demonstrates moderate stool distention suggestive of constipation. Peritoneum:There is a small amount of intraperitoneal free fluid. No free air. Ventral Wall: No hernia. Abdominal Nodes: No retroperitoneal or mesenteric adenopathy by size criteria. Vessels: Aorta and inferior vena cava are normal in size. PELVIS: Pelvic Organs:Scattered calcifications are demonstrated within the uterus compatible with calcified fibroids. There are also prominent vascular calcifications. There is a left adnexal cyst measuring up to 3.5 cm. Bladder: Unremarkable. Pelvic Nodes: No enlarged lymph nodes. Miscellaneous: No inguinal hernias. Bones: There are moderate compression deformities of the T12, L3, and L4 vertebral bodies which appea r similar to the prior study. Visualized osseous structures demonstrate no suspicious lesions. IMPRESSION: 1. Distended small bowel loops with a transition point in the left hemipelvis consistent with a small bowel obstruction as described. 2. Small amount of intraperitoneal free fluid is nonspecific but likely reactive. 3. Moderate colonic stool distention suggestive of constipation. Reviewed by: Ghassan Sandra MD on 07/14/2023 10:48 PM PDT Approved by: Ghassan Sandra MD on 07/14/2023 10:48 PM PDT Station ID: [id number]
[2023-07-14] MEDS ORDERED: SODIUM CHLORIDE FLUSH 0.9% 10 ML SYRINGE IVP PRN (23:27)
[2023-07-14] MEDS ORDERED: ONDANSETRON 4 MG/2 ML VIAL IVP PRN (23:27)
[2023-07-14] MEDS ORDERED: hydrALAZINE INJ 20 MG/ML VIAL IVP PRN (23:29)
--- NOTE | 2023-07-14 23:35 | HISTORY & PHYSICAL EXAMINATION ---
Chief Complaint - Chief Complaint Chief Complaint: Abdominal pain, nausea, vomiting History of Present Illness - History of Present Illness HPI Comment/Other: 87 y old female with PMH HTN, Colon cancer s/p partial colectomy, H/O bowel obstructions presented top ER due to abdominal pain, bloating, nausea and vomiting since yesterday. Last BM was yesterday. Denies fever, chest pain, SOB, symptoms On presenation,. BP accelerated afebrile Labs showed normal WBC, hypokalemia CT abdomen showed SBO As per Dr Simon, he consulted with surgeon airline reservationist, Dr Saldaña who will consult Pt is admitted due to SBO, nausea, vomiting, hypokalemia History - Past Medical History Cardiovascular: reports: Hypertension Respiratory: reports: None Neuro: reports: CVA Endocrine/Autoimmune: reports: None GI: reports: Chronic constipation, Other (Colon cancer status post partial colectomy) : reports: None HEENT: reports: Other Psych: reports: None Musculoskeletal: reports: Osteoarthritis, Chronic back pain Derm: reports: Other MRSA Hx?: No Other Past Medical History: bowel obstruction - Past Surgical History General: reports: Cholecystectomy, Appendectomy, Bowel surgery, 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 Healthy without any major medical issues. Father was 98 when he . Old age. Sister had colon cancer and hypertension Social History Notes: The patient is originally from [place] moved to the [facility] when she was 22 years old. She initially lived with her in [place], [place]. They moved to [facility] about 53 years ago and she has been living here ever since. The patient gave to 4 children 1 of whom has . The patient's about 33 years ago she is . The patient lives alone in her own home she is fully independent. She states that she still drives. The patient has a small [place] and takes care of the shinto. Patient has never smoked, does not drink alcohol and denies any illicit drug use. - Substance History Use: Uses substance without health or social issues: NONE - POLST Patient has POLST: No POLST Status: Full Code Meds/Allgy - Home Medications Home Medications: Ambulatory Orders Medication Instructions Recorded Confirmed lisinopriL [Zestril] 20 mg PO QPM 01/21/14 07/14/23 Aspirin 325 mg PO DAILY 01/18/20 07/14/23 Atorvastatin Calcium 10 mg PO QPM 01/18/20 07/14/23 Calcium Carbonate/Vitamin D3 1 tab PO DAILY 01/18/20 07/14/23 [Caltrate 600 Plus D3 Tablet] Cetirizine [ZyrTEC] 5 - 10 mg PO BID MDD 15 mg 01/18/20 07/14/23 Docusate Sodium 250Mg Capsule 250 mg PO BID 01/18/20 07/14/23 [Colace 250Mg Capsule] Lisinopril/Hydrochlorothiazide 1 tab PO DAILY 01/18/20 07/14/23 [Lisinopril-Hctz 20-25 mg Tab] polyethylene glycoL 3350(BULK) 17 gm PO DAILY PRN #1 each 11/29/22 07/14/23 [Miralax] Aspirin [Pearl] 325 mg PO DAILY 07/14/23 07/14/23 Hydralazine HCl 25 mg PO BID 07/14/23 07/14/23 Pantoprazole Sodium 20 mg PO DAILY 07/14/23 07/14/23 Potassium Chloride 10 meq PO QPM 07/14/23 07/14/23 Vits A,C,E/Lutein/Minerals [Eye 1 tab PO BID 07/14/23 07/14/23 Health Plus Lutein Tablet] - Allergies Allergies/Adverse Reactions: Allergies Allergy/AdvReac Type Severity Reaction Status Date / Time aspirin AdvReac bleeding Verified 11/27/22 14:58 Review of Systems - Other Findings Other Findings: 10 points systems were reviewed and were negative except mentioned in HPI Exam - Vital Signs Vital Signs: Vital Signs x48h Temp Pulse Resp BP Pulse Ox 07/14/23 21:38 63 24 174/92 H 99 07/14/23 20:18 70 21 163/94 H 98 07/14/23 20:00 36.9 C 78 16 159/114 H 99 - Physical Exam General Appearance: positive: No acute distress Eyes Bilateral: positive: Normal inspection ENT: positive: ENT inspection nml Neck: positive: Nml inspection Respiratory: positive: Breath sounds nml Cardiovascular: positive: Regular rate & rhythm Abdomen: positive: Non-tender, Nml bowel sounds, No distention Skin: positive: No rash Extremities: positive: No pedal edema Neurologic/Psychiatric: positive: Oriented x3, Motor nml Conclusion/Plan - Lab Results Fish Bones: 07/14/23 20:15 07/14/23 20:15 - Other Other Results/Comments: A: SBO Nausea and vomiting Hypokalemia HTN accelerated H/O Colon cancer s/p partail colectomy Plan; Admit to med surg NPO Start NS @ 100 cc/h Monitor I/O, electrolytes As per ER physician ( Dr Simon) , he conulted with surgeon airline reservationist, Dr Saldaña who will see patient in am and does not think that patient needs NG at this time Zofran iv prn Replace k and monitor Hydralazine iv prn for SBP > 170 DVT prophylaxic: SCD Full code Patient is admitted as inpatient as more than 2 midnight stay is expected
[2023-07-15] MEDS: SODIUM CHLORIDE 0.9% 1,000 ML IV SCH ×3 (00:15→21:26)
[2023-07-15] MEDS: SODIUM CHLORIDE FLUSH 0.9% 10 ML SYRINGE IVP SCH ×3 (00:29→15:59)
--- NOTE | 2023-07-15 08:10 | PROVIDER PROGRESS NOTE ---
Assessment/Plan - Problem List (1) Small bowel obstruction Assessment/Plan: She has had prior abdominal surgery. She has had bowel obstructions before Plan: Continue with n.p.o. for bowel rest Continue with IV hydration for support General surgery consult, to follow along with us and to decide on ng tube placement for decompression. Possible Gastrografin challenge will be ordered (2) Hypertension Qualifiers: Hypertension type: essential hypertension Assessment/Plan: Her BP is elevated here (VS were all reviewed) probably from pain and stress of her SBO. She is also not able to take her oral BP meds Plan: IV hydralazine has been ordered and we will continue that scheduled while she is n.p.o. (3) Hypokalemia Assessment/Plan: [place] from potassium losses in her vomiting but also she is on HCTZ for her BP meds adding to potassium loss Plan: Replace with IV K riders Follow BMP daily (4) History of hemicolectomy Assessment/Plan: Done for colon CA. This gives her risk for the bowel obstructions she has had - Current Meds Current Meds: Current Medications Generic Name Dose Route Start Last Admin Trade Name Freq PRN Reason Stop Dose Admin Sodium Chloride 1,000 mls @ 100 mls/hr 07/14/23 23:45 07/15/23 05:33 Normal Saline 0.9% IV 100 mls/hr .Q10H SABRA Infusion Sodium Chloride 10 ml 07/15/23 01:00 07/15/23 00:29 Sodium Chloride Flush 0.9% 10 Ml Syringe IVP 10 ml 0100,0900,1700 SABRA Administration - Lab Result Fish Bone Diagrams: 07/16/23 04:39 07/16/23 04:39 - Additional Planning My Orders: My Active Orders 07/15/23 12:00 BMP - BASIC METABOLIC PANEL [CHEM] Routine 07/16/23 05:00 BMP - BASIC METABOLIC PANEL [CHEM] DAILYLAB CBC - COMP BLD CT W/AUTO DIFF [HEME] DAILYLAB MAGNESIUM [CHEM] DAILYLAB PHOSPHORUS [CHEM] DAILYLAB 07/17/23 05:00 BMP - BASIC METABOLIC PANEL [CHEM] DAILYLAB CBC - COMP BLD CT W/AUTO DIFF [HEME] DAILYLAB 07/18/23 05:00 BMP - BASIC METABOLIC PANEL [CHEM] DAILYLAB CBC - COMP BLD CT W/AUTO DIFF [HEME] DAILYLAB 07/19/23 05:00 BMP - BASIC METABOLIC PANEL [CHEM] DAILYLAB CBC - COMP BLD CT W/AUTO DIFF [HEME] DAILYLAB Subjective - Subjective Patient Reports: Feeling Better (No more nausea or vomiting, less pain, not passing gas yet) Objective Vital Signs: Vital Signs - 24 hr 07/14/23 07/14/23 07/14/23 20:00 20:18 21:38 Temperature 36.9 C Heart Rate 78 70 63 Heart Rate [ Brachial] Respiratory 16 21 24 Rate Blood Pressure 159/114 H 163/94 H 174/92 H Blood Pressure [Right Brachial artery] O2 Saturation 99 98 99 07/15/23 07/15/23 07/15/23 00:00 00:01 05:17 Temperature 36.8 C 37.0 C Heart Rate 67 Heart Rate [ 60 62 Brachial] Respiratory 16 16 Rate Blood Pressure 155/81 H Blood Pressure 159/89 H 131/73 H [Right Brachial artery] O2 Saturation 98 98 98 07/15/23 07:31 Temperature 36.6 C Heart Rate Heart Rate [ 61 Brachial] Respiratory 14 Rate Blood Pressure Blood Pressure 133/75 H [Right Brachial artery] O2 Saturation 96 Oxygen O2 Source Room air I&O (Last 24 Hrs): Intake and Output Totals x24h 07/13/23 07/14/23 07/15/23 23:59 23:59 23:59 Intake Total 1100.000 530 Balance 1100.000 530 General: Alert, No acute distress HEENT: Other (Dry mucosa) Neck: Supple Neuro: Alert, Non Focal Cardiovascular: Regular rate Respiratory: No respiratory distress Abdomen: Soft, Other (No guarding, no bowel sounds) Extremities: No clubbing, No edema, No tenderness/swelling Skin: No rashes - Results Results: Laboratory Results WBC 7.0 x10^3/uL (4.8-10.8) 07/14/23 20:15 RBC 4.74 10^6/uL (4.20-5.40) 07/14/23 20:15 Hgb 14.5 g/dL (12.0-16.0) 07/14/23 20:15 Hct 43.1 % (37.0-47.0) 07/14/23 20:15 MCV 90.9 fL (81.0-99.0) 07/14/23 20:15 MCH 30.6 pg (27.0-31.0) 07/14/23 20:15 MCHC 33.6 g/dL (32.0-36.0) 07/14/23 20:15 RDW 12.1 % (12.0-15.0) 07/14/23 20:15 Plt Count 272 10^3/uL (130-450) 07/14/23 20:15 MPV 8.9 fL (7.9-10.8) 07/14/23 20:15 Neut # (Auto) 5.4 10^3/uL (1.5-6.6) 07/14/23 20:15 Lymph # (Auto) 1.0 10^3/uL (1.5-3.5) L 07/14/23 20:15 [place] # (Auto) 0.4 10^3/uL (0.0-1.0) 07/14/23 20:15 Eos # (Auto) 0.0 10^3/uL (0.0-0.7) 07/14/23 20:15 Baso # (Auto) 0.1 10^3/uL (0.0-0.1) 07/14/23 20:15 Absolute Nucleated RBC 0.00 x10^3/uL 07/14/23 20:15 Nucleated RBC % 0.0 /100WBC 07/14/23 20:15 Sodium 134 mmol/L (135-145) L 07/14/23 20:15 Potassium 3.0 mmol/L (3.5-5.0) L 07/14/23 20:15 Chloride 94 mmol/L (101-111) L 07/14/23 20:15 Carbon Dioxide 27 mmol/L (21-32) 07/14/23 20:15 Anion Gap 13.0 (6-13) 07/14/23 20:15 BUN 19 mg/dL (6-20) 07/14/23 20:15 Creatinine 0.6 mg/dL (0.4-1.0) 07/14/23 20:15 Estimated GFR (MDRD) 95 (>89) 07/14/23 20:15 Glucose 135 mg/dL (70-100) H 07/14/23 20:15 Calcium 9.9 mg/dL (8.5-10.3) 07/14/23 20:15 Total Bilirubin 1.2 mg/dL (0.2-1.0) H 07/14/23 20:15 AST 26 IU/L (10-42) 07/14/23 20:15 ALT 20 IU/L (10-60) 07/14/23 20:15 Alkaline Phosphatase 40 IU/L (42-121) L 07/14/23 20:15 Total Protein 7.6 g/dL (6.7-8.2) 07/14/23 20:15 Albumin 4.6 g/dL (3.2-5.5) 07/14/23 20:15 Globulin 3.0 g/dL (2.1-4.2) 07/14/23 20:15 Albumin/Globulin Ratio 1.5 (1.0-2.2) 07/14/23 20:15 Lipase 33 U/L (22-51) 07/14/23 20:15 Urine Color YELLOW 07/14/23 22:00 Urine Clarity CLEAR (CLEAR) 07/14/23 22:00 Urine pH 8.0 PH (5.0-7.5) H 07/14/23 22:00 Ur Specific [place] 1.010 (1.002-1.030) 07/14/23 22:00 Urine Protein 30 mg/dL (NEGATIVE) H 07/14/23 22:00 Urine Glucose (UA) NEGATIVE mg/dL (NEGATIVE) 07/14/23 22:00 Urine Ketones TRACE mg/dL (NEGATIVE) 07/14/23 22:00 Urine Occult Blood NEGATIVE (NEGATIVE) 07/14/23 22:00 Urine Nitrite NEGATIVE (NEGATIVE) 07/14/23 22:00 Urine Bilirubin NEGATIVE (NEGATIVE) 07/14/23 22:00 Urine Urobilinogen 1 (NORMAL) E.U./dL (NORMAL) 07/14/23 22:00 Ur Leukocyte Esterase NEGATIVE (NEGATIVE) 07/14/23 22:00 Urine RBC None Seen /HPF (0-5) 07/14/23 22:00 Urine WBC 0-3 /HPF (0-5) 07/14/23 22:00 Ur Squamous Epith Cells FEW Squamous (<= Few) 07/14/23 22:00 Amorphous Sediment Few /LPF 07/14/23 22:00 Urine Bacteria Rare /HPF (None Seen) 07/14/23 22:00 Ur Microscopic Review INDICATED 07/14/23 22:00 Urine Culture Comments NOT INDICATED 07/14/23 22:00 - Procedures Procedures: Procedures COLONOSCOPY (08/12/15)
--- NOTE | 2023-07-15 10:19 | PHARMACY PROGRESS NOTE ---
- Best Possible Medication History Admit Date and Time: 07/14/23 4046 Processed by: Nursing Medication History completed: Yes As the person ultimately responsible for medication therapy, providers are able to order a medication from an existing home medication list in [facility] via the "Reconcile Routine" prior to Confirmation of that medication by information support project manager. Such practice is discouraged except when the physician, in their clinical judgment, deems that a medical need exists for a medication without regard to previous use.
[2023-07-15 12:13] LABS: CALCIUM 8.9 mg/dL (8.5-10.3); CREATININE 0.5 mg/dL (0.6-1.3); POTASSIUM 3.2 mmol/L (3.5-4.5)
--- NOTE | 2023-07-15 16:07 | CONSULTATION NOTE ---
Referring Provider Consult Date: 07/15/23 Chief Complaint - Chief Complaint Chief Complaint: n/v History of Present Illness - History Obtained From Records Reviewed: yes History obtained from: pt Exam Limitations: none - History of Present Illness HPI Comment/Other: n/v all day yesterday. last bm 2 days ago. history prior abdominal surgery and small bowel obstruction. ct scan concerning for sbo. colon full of stool as well. she feels much improved this afternoon. does not feel distened. nausea resolved. passing some gas. minimal to no pain History - Past Medical History Cardiovascular: reports: Hypertension Respiratory: reports: None Neuro: reports: CVA Endocrine/Autoimmune: reports: None GI: reports: Chronic constipation, Other : reports: None HEENT: reports: Other Psych: reports: None Musculoskeletal: reports: Osteoarthritis, Chronic back pain Derm: reports: Other MRSA Hx?: No Other Past Medical History: bowel obstruction - Past Surgical History General: reports: Cholecystectomy, Appendectomy, Bowel surgery, Colonoscopy /INBOUND INGREDIENT LOGISTICS SPECIALIST: reports: section HEENT: reports: Cataracts - Family & Social History Family History Comment/Other: Mom was in her 80s when she . Healthy without any major medical issues. Father was 98 when he . Old age. Sister had colon cancer and hypertension Social History Notes: The patient is originally from [place] moved to the [facility] when she was 22 years old. She initially lived with her in [place], [place]. They moved to [facility] about 53 years ago and she has been living here ever since. The patient gave to 4 children 1 of whom has . The patient's about 33 years ago she is . The patient lives alone in her own home she is fully independent. She states that she still drives. 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 Patient has never smoked, does not drink alcohol and denies any illicit drug use. - Substance History Use: Uses substance without health or social issues: NONE - POLST Patient has POLST: No POLST Status: Full Code Meds/Allgy - Home Medications Home Medications: Ambulatory Orders Medication Instructions Recorded Confirmed lisinopriL [Zestril] 20 mg PO QPM 01/21/07/14/23 Aspirin 325 mg PO DAILY 01/18/20 07/14/23 Atorvastatin Calcium 10 mg PO QPM 01/18/20 07/14/23 Calcium Carbonate/Vitamin D3 1 tab PO DAILY 01/18/20 07/14/23 [Caltrate 600 Plus D3 Tablet] Cetirizine [ZyrTEC] 5 - 10 mg PO BID MDD 15 mg 01/18/20 07/14/23 Docusate Sodium 250Mg Capsule 250 mg PO BID 01/18/20 07/14/23 [Colace 250Mg Capsule] Lisinopril/Hydrochlorothiazide 1 tab PO DAILY 01/18/20 07/14/23 [Lisinopril-Hctz 20-25 mg Tab] polyethylene glycoL 3350(BULK) 17 gm PO DAILY PRN #1 each 11/29/22 07/14/23 [Miralax] Hydralazine HCl 25 mg PO BID 07/14/23 07/14/23 Pantoprazole Sodium 20 mg PO DAILY 07/14/23 07/14/23 Potassium Chloride 10 meq PO QPM 07/14/23 07/14/23 Vits A,C,E/Lutein/Minerals [Eye 1 tab PO BID 07/14/23 07/14/23 Health Plus Lutein Tablet] - Allergies Allergies/Adverse Reactions: Allergies Allergy/AdvReac Type Severity Reaction Status Date / Time aspirin AdvReac bleeding Verified 11/27/22 14:58 Review of Systems - Other Findings Other Findings: 10 pt ros as above otherwise unremarkable Exam - Vital Signs Vital Signs: Vital Signs x48h Temp Pulse Resp BP Pulse Ox 07/15/23 15:42 36.8 C 63 24 141/64 H 96 07/15/23 12:26 36.6 C 56 L 18 152/73 H 96 - Physical Exam General Appearance: positive: No acute distress, Alert Eyes Bilateral: positive: PERRL, EOMI ENT: positive: No signs of dehydration Neck: positive: No JVD, Trachea midline Respiratory: positive: No respiratory distress Abdomen: positive: No distention, Other (denies tenderness) Neurologic/Psychiatric: positive: Oriented x3 Conclusion and Plan - Lab Results Laboratory Results 07/15/23 11:53: Sodium 137, Potassium 3.2 L, Chloride 102, Carbon Dioxide 30, Anion Gap 5.0 L, BUN 18, Creatinine 0.5 L, Estimated GFR (MDRD) 117, Glucose 91, Calcium 8.9 07/14/23 22:00: Urine Color YELLOW, Urine Clarity CLEAR, Urine pH 8.0 H, Ur Specific [place] 1.010, Urine Protein 30 H, Urine Glucose (UA) NEGATIVE, Urine Ketones TRACE, Urine Occult Blood NEGATIVE, Urine Nitrite NEGATIVE, Urine Bilirubin NEGATIVE, Urine Urobilinogen 1 (NORMAL), Ur Leukocyte Esterase NEGATIVE, Urine RBC None Seen, Urine WBC 0-3, Ur Squamous Epith Cells FEW Squamous, Amorphous Sediment Few, Urine Bacteria Rare, Ur Microscopic Review INDICATED, Urine Culture Comments NOT INDICATED 07/14/23 20:15: Sodium 134 L, Potassium 3.0 L, Chloride 94 L, Carbon Dioxide 27, Anion Gap 13.0, BUN 19, Creatinine 0.6, Estimated GFR (MDRD) 95, Glucose 135 H, Calcium 9.9, Total Bilirubin 1.2 H, AST 26, ALT 20, Alkaline Phosphatase 40 L, Total Protein 7.6, Albumin 4.6, Globulin 3.0, Albumin/Globulin Ratio 1.5, Lipase 33 07/14/23 20:15: WBC 7.0, RBC 4.74, Hgb 14.5, Hct 43.1, MCV 90.9, MCH 30.6, MCHC 33.6, RDW 12.1, Plt Count 272, MPV 8.9, Neut # (Auto) 5.4, Lymph # (Auto) 1.0 L, [place] # (Auto) 0.4, Eos # (Auto) 0.0, Baso # (Auto) 0.1, Absolute Nucleated RBC 0.00, Nucleated RBC % 0.0 - Diagnostic Imaging Results Diagnostic Imaging Results: positive: Read independently - Diagnosis Diagnosis: n/v and ct scan concerning for small bowel obstruction - Plan Plan: agree with care and plan. her nausea has resolved and she would like something to drink we discussed sips this evening and if doing well clears as tolerated tomorrow. if not doing well agree with gastrografin study tomorrow
[2023-07-16] MEDS: SODIUM CHLORIDE FLUSH 0.9% 10 ML SYRINGE IVP SCH ×3 (01:05→16:24)
[2023-07-16 05:13] LABS: BASOPHILS # (AUTO) 0.1 10^3/uL (0.0-0.1); BASOPHILS % (AUTO) 1.7 %; EOSINOPHILS # (AUTO) 0.2 10^3/uL (0.0-0.7); EOSINOPHILS % (AUTO) 5.6 %; HCT - HEMATOCRIT 33.1 % (37.0-47.0); HGB - HEMOGLOBIN 10.7 g/dL (12.0-16.0); LYMPHOCYTES % (AUTO) 33.3 %; MEAN CORPUSCULAR HEMOGLOBIN 30.5 pg (27.0-31.0); MEAN CORPUSCULAR HGB CONC 32.3 g/dL (32.0-36.0); MEAN CORPUSCULAR VOLUME 94.3 fL (81.0-99.0); MEAN PLATELET VOLUME 9.2 fL (7.9-10.8); MONOCYTES # (AUTO) 0.2 10^3/uL (0.0-1.0); MONOCYTES % (AUTO) 6.9 %; NEUTROPHILS # (AUTO) 1.6 10^3/uL (1.5-6.6); NEUTROPHILS % (AUTO) 52.5 %; PLT - PLATELET COUNT 189 10^3/uL (130-450); RED BLOOD COUNT 3.51 10^6/uL (4.20-5.40); RED CELL DISTRIBUTION WIDTH 11.9 % (12.0-15.0)
[2023-07-16 05:26] LABS: CALCIUM 8.4 mg/dL (8.5-10.3); CREATININE 0.4 mg/dL (0.6-1.3); MAGNESIUM 1.7 mg/dL (1.7-2.3); PHOSPHORUS 2.8 mg/dL (2.5-5.0); POTASSIUM 2.9 mmol/L (3.5-4.5)
[2023-07-16] MEDS: SODIUM CHLORIDE 0.9% 1,000 ML IV SCH ×2 (07:04→11:20)
[2023-07-16] MEDS: POTASSIUM CHLOR 10 MEQ/100 ML 10 MEQ/100 ML BAG IV SCH ×5 (08:11→12:57)
[2023-07-16] MEDS ORDERED: ACETAMINOPHEN 325 MG TABLET PO PRN (08:46)
[2023-07-16] MEDS ORDERED: DIATR MEGLU/DIATRIZOATE SODIUM 120 ML BOTTLE PO ONE (14:00)
[2023-07-16] MEDS ORDERED: DIATR MEGLU/DIATRIZOATE SODIUM 120 ML BOTTLE ONE (14:15)
--- NOTE | 2023-07-16 15:12 | PROVIDER PROGRESS NOTE ---
Subjective - Subjective Pt reports feeling: Improved (feels well. tolerating clears. no nauea or pain. small bm today) Objective - Vital Signs/Intake & Output Vital Signs: Vital Signs x48h Temp Pulse Resp BP Pulse Ox 07/16/23 11:39 36.6 C 51 L 154/74 H 98 07/16/23 07:51 36.5 C 93 18 161/81 H 92 Intake & Output: Intake & Output 07/13/23 07/14/23 07/15/23 07/16/23 23:59 23:59 23:59 23:59 Intake Total 9000.513 8995.667 1643.333 Balance 5092.312 5620.667 1643.333 - Objective General Appearance: positive: No acute distress, Alert Eyes Bilateral: positive: PERRL, EOMI ENT: positive: No signs of dehydration Neck: positive: No JVD Respiratory: positive: No respiratory distress Abdomen: positive: No distention Neurologic/Psychiatric: positive: Oriented x3 - Lab Results Fish Bones: 07/16/23 04:39 07/16/23 04:39 Other Labs: Lab Results x24hrs 07/16/23 07/16/23 Range/Units 04:39 04:39 WBC 3.0 L (4.8-10.8) x10^3/uL RBC 3.51 L (4.20-5.40) 10^6/uL Hgb 10.7 L (12.0-16.0) g/dL Hct 33.1 L (37.0-47.0) % MCV 94.3 (81.0-99.0) fL MCH 30.5 (27.0-31.0) pg MCHC 32.3 (32.0-36.0) g/dL RDW 11.9 L (12.0-15.0) % Plt Count 189 (130-450) 10^3/uL MPV 9.2 (7.9-10.8) fL Neut # (Auto) 1.6 (1.5-6.6) 10^3/uL Lymph # (Auto) 1.0 L (1.5-3.5) 10^3/uL [place] # (Auto) 0.2 (0.0-1.0) 10^3/uL Eos # (Auto) 0.2 (0.0-0.7) 10^3/uL Baso # (Auto) 0.1 (0.0-0.1) 10^3/uL Absolute Nucleated RBC 0.00 x10^3/uL Nucleated RBC % 0.0 /100WBC Sodium 137 (135-145) mmol/L Potassium 2.9 L (3.5-4.5) mmol/L Chloride 105 (101-111) mmol/L Carbon Dioxide 27 (21-32) mmol/L Anion Gap 5.0 L (6-13) BUN 14 (6-20) mg/dL Creatinine 0.4 L (0.6-1.3) mg/dL Estimated GFR (MDRD) 151 (>89) Glucose 81 (74-104) mg/dL Calcium 8.4 L (8.5-10.3) mg/dL Phosphorus 2.8 (2.5-5.0) mg/dL Magnesium 1.7 (1.7-2.3) mg/dL Assessment/Plan - Problem List (1) Intractable nausea and vomiting Impression: much improved. tolerating clears and feels well agree with care and plan
--- NOTE | 2023-07-16 15:50 | PROVIDER PROGRESS NOTE ---
Assessment/Plan - Problem List (1) Small bowel obstruction Assessment/Plan: She has had prior abdominal surgery. She has had bowel obstructions before. Has improved in that she now has no pain, no nausea or vomiting and is passing gas. Ever she has nearly no bowel sounds Plan: Continue with clear liquid diet ordered starting with her lunch by Dr hutchins, gen surg Continue with IV hydration for support, decrease iv rate I will order a Gastrografin challenge with small bowel follow thru on Abd XRay General surgery consult, to follow along with us (2) Hypertension Qualifiers: Hypertension type: essential hypertension Assessment/Plan: Her BP was elevated here (VS were all reviewed) probably from pain and stress of her SBO. She is also not able to take her oral BP meds Plan: Cont IV hydralazine scheduled while she is only on a clear liquid diet I explained to the patient as well as the family friend visiting her today at bedside, that she is getting most things by IV still (3) Hypokalemia Assessment/Plan: [place] from potassium losses in her vomiting but also she is on HCTZ for her BP meds adding to potassium loss Plan: Replace with IV K riders Follow BMP daily (4) History of hemicolectomy Assessment/Plan: Done for colon CA. This gives her risk for the bowel obstructions she has had - Current Meds Current Meds: Current Medications Generic Name Dose Route Start Last Admin Trade Name Freq PRN Reason Stop Dose Admin Sodium Chloride 1,000 mls @ 83.33 mls/hr 07/16/23 11:00 07/16/23 11:20 Normal Saline 0.9% IV 83.33 mls/hr .Q12H1M SABRA Administration Sodium Chloride 10 ml 07/15/23 01:00 07/16/23 08:56 Sodium Chloride Flush 0.9% 10 Ml Syringe IVP Not Given 0100,0900,1700 SABRA - Lab Result Fish Bone Diagrams: 07/16/23 04:39 07/16/23 04:39 - Additional Planning My Orders: My Active Orders 07/15/23 17:01 Miscellaenous Nursing Order [RC] QSHIFT 07/16/23 08:46 Acetaminophen [Tylenol] 650 mg PO Q4HR PRN 07/16/23 11:00 Sodium Chloride 0.9% [Normal Saline 0.9%] 1,000 ml IV 83.33 mls/hr 07/17/23 05:00 BMP - BASIC METABOLIC PANEL [CHEM] DAILYLAB CBC - COMP BLD CT W/AUTO DIFF [HEME] DAILYLAB 07/18/23 05:00 BMP - BASIC METABOLIC PANEL [CHEM] DAILYLAB CBC - COMP BLD CT W/AUTO DIFF [HEME] DAILYLAB 07/19/23 05:00 BMP - BASIC METABOLIC PANEL [CHEM] DAILYLAB CBC - COMP BLD CT W/AUTO DIFF [HEME] DAILYLAB Subjective - Subjective Patient Reports: Feeling Better (Passing tiny amounts of gas. No abdominal pain, no nausea or vomiting, tolerated sips yesterday and today chicken broth) Objective Vital Signs: Vital Signs - 24 hr 07/15/23 07/16/23 07/16/23 20:27 00:24 04:47 Temperature 36.7 C 36.5 C 36.7 C Heart Rate [ 60 54 L 56 L Brachial] Respiratory 20 16 16 Rate Blood Pressure 142/75 H 152/78 H [Left Brachial artery] Blood Pressure 154/78 H [Right Brachial artery] O2 Saturation 97 96 98 07/16/23 07/16/23 07/16/23 07:51 11:39 15:43 Temperature 36.5 C 36.6 C 36.9 C Heart Rate [ 93 51 L 53 L Brachial] Respiratory 18 18 Rate Blood Pressure 161/81 H 154/74 H 171/83 H [Left Brachial artery] Blood Pressure 173/77 H [Right Brachial artery] O2 Saturation 92 98 99 Oxygen O2 Source Room air I&O (Last 24 Hrs): Intake and Output Totals x24h 07/14/23 07/15/23 07/16/23 23:59 23:59 23:59 Intake Total 3241.786 7396.667 1643.333 Balance 2102.162 8264.667 1643.333 General: Alert, Oriented x3 HEENT: EOMI, Mucous membr. moist/pink Neck: Supple, No JVD Neuro: Alert, Non Focal Cardiovascular: Regular rate, No murmurs Respiratory: No respiratory distress, Breath sounds nml Abdomen: Soft, Other (Bowel sounds are only heard in the right lower quadrant. No guarding or rebound.) Extremities: No clubbing, No edema, No tenderness/swelling - Results Results: Laboratory Results WBC 3.0 x10^3/uL (4.8-10.8) L 07/16/23 04:39 RBC 3.51 10^6/uL (4.20-5.40) L 07/16/23 04:39 Hgb 10.7 g/dL (12.0-16.0) L 07/16/23 04:39 Hct 33.1 % (37.0-47.0) L 07/16/23 04:39 MCV 94.3 fL (81.0-99.0) 07/16/23 04:39 MCH 30.5 pg (27.0-31.0) 07/16/23 04:39 MCHC 32.3 g/dL (32.0-36.0) 07/16/23 04:39 RDW 11.9 % (12.0-15.0) L 07/16/23 04:39 Plt Count 189 10^3/uL (130-450) 07/16/23 04:39 MPV 9.2 fL (7.9-10.8) 07/16/23 04:39 Neut # (Auto) 1.6 10^3/uL (1.5-6.6) 07/16/23 04:39 Lymph # (Auto) 1.0 10^3/uL (1.5-3.5) L 07/16/23 04:39 [place] # (Auto) 0.2 10^3/uL (0.0-1.0) 07/16/23 04:39 Eos # (Auto) 0.2 10^3/uL (0.0-0.7) 07/16/23 04:39 Baso # (Auto) 0.1 10^3/uL (0.0-0.1) 07/16/23 04:39 Absolute Nucleated RBC 0.00 x10^3/uL 07/16/23 04:39 Nucleated RBC % 0.0 /100WBC 07/16/23 04:39 Sodium 137 mmol/L (135-145) 07/16/23 04:39 Potassium 2.9 mmol/L (3.5-4.5) L 07/16/23 04:39 Chloride 105 mmol/L (101-111) 07/16/23 04:39 Carbon Dioxide 27 mmol/L (21-32) 07/16/23 04:39 Anion Gap 5.0 (6-13) L 07/16/23 04:39 BUN 14 mg/dL (6-20) 07/16/23 04:39 Creatinine 0.4 mg/dL (0.6-1.3) L 07/16/23 04:39 Estimated GFR (MDRD) 151 (>89) 07/16/23 04:39 Glucose 81 mg/dL (74-104) 07/16/23 04:39 Calcium 8.4 mg/dL (8.5-10.3) L 07/16/23 04:39 Phosphorus 2.8 mg/dL (2.5-5.0) 07/16/23 04:39 Magnesium 1.7 mg/dL (1.7-2.3) 07/16/23 04:39 Total Bilirubin 1.2 mg/dL (0.2-1.0) H 07/14/23 20:15 AST 26 IU/L (10-42) 07/14/23 20:15 ALT 20 IU/L (10-60) 07/14/23 20:15 Alkaline Phosphatase 40 IU/L (42-121) L 07/14/23 20:15 Total Protein 7.6 g/dL (6.7-8.2) 07/14/23 20:15 Albumin 4.6 g/dL (3.2-5.5) 07/14/23 20:15 Globulin 3.0 g/dL (2.1-4.2) 07/14/23 20:15 Albumin/Globulin Ratio 1.5 (1.0-2.2) 07/14/23 20:15 Lipase 33 U/L (22-51) 07/14/23 20:15 Urine Color YELLOW 07/14/23 22:00 Urine Clarity CLEAR (CLEAR) 07/14/23 22:00 Urine pH 8.0 PH (5.0-7.5) H 07/14/23 22:00 Ur Specific [place] 1.010 (1.002-1.030) 07/14/23 22:00 Urine Protein 30 mg/dL (NEGATIVE) H 07/14/23 22:00 Urine Glucose (UA) NEGATIVE mg/dL (NEGATIVE) 07/14/23 22:00 Urine Ketones TRACE mg/dL (NEGATIVE) 07/14/23 22:00 Urine Occult Blood NEGATIVE (NEGATIVE) 07/14/23 22:00 Urine Nitrite NEGATIVE (NEGATIVE) 07/14/23 22:00 Urine Bilirubin NEGATIVE (NEGATIVE) 07/14/23 22:00 Urine Urobilinogen 1 (NORMAL) E.U./dL (NORMAL) 07/14/23 22:00 Ur Leukocyte Esterase NEGATIVE (NEGATIVE) 07/14/23 22:00 Urine RBC None Seen /HPF (0-5) 07/14/23 22:00 Urine WBC 0-3 /HPF (0-5) 07/14/23 22:00 Ur Squamous Epith Cells FEW Squamous (<= Few) 07/14/23 22:00 Amorphous Sediment Few /LPF 07/14/23 22:00 Urine Bacteria Rare /HPF (None Seen) 07/14/23 22:00 Ur Microscopic Review INDICATED 07/14/23 22:00 Urine Culture Comments NOT INDICATED 07/14/23 22:00 - Procedures Procedures: Procedures COLONOSCOPY (08/12/15)
--- NOTE | 2023-07-16 16:18 | XRAY Report ---
PROCEDURE: SBFT Challenge Panel INDICATIONS: SBO COMPARISON: None CONTRAST: Gastrografin was administered. FLUOROSCOPY TIME: 1 hour and 45 minutes FINDINGS: KUB: Preprocedural senior piping designer film demonstrates a normal bowel gas pattern. No suspicious abdominal calc ifications. Status post cholecystectomy. No suspicious bony abnormalities. Small bowel: There is normal transit time of barium through the small bowel. Small bowel loops are of normal caliber throughout. Mucosal folds are smooth and of normal thickness. No strictures, intr aluminal masses, or extrinsic mass effects are noted. Contrast is present within the ascending colon at 1 hour 45 minutes. IMPRESSION: Normal small bowel follow-through. Reviewed by: Hammad Stratton on 07/16/2023 4:17 PM PDT Approved by: Hammad Stratton on 07/16/2023 4:17 PM PDT Station ID: [id number]
[2023-07-17] MEDS: SODIUM CHLORIDE FLUSH 0.9% 10 ML SYRINGE IVP SCH ×2 (01:23→08:38)
[2023-07-17] MEDS: SODIUM CHLORIDE 0.9% 1,000 ML IV SCH (01:23)
[2023-07-17 05:44] LABS: BASOPHILS # (AUTO) 0.1 10^3/uL (0.0-0.1); BASOPHILS % (AUTO) 1.8 %; EOSINOPHILS # (AUTO) 0.1 10^3/uL (0.0-0.7); EOSINOPHILS % (AUTO) 3.9 %; HCT - HEMATOCRIT 32.4 % (37.0-47.0); HGB - HEMOGLOBIN 10.7 g/dL (12.0-16.0); LYMPHOCYTES # (AUTO) 0.9 10^3/uL (1.5-3.5); LYMPHOCYTES % (AUTO) 31.2 %; MEAN CORPUSCULAR HEMOGLOBIN 30.3 pg (27.0-31.0); MEAN CORPUSCULAR VOLUME 91.8 fL (81.0-99.0); MEAN PLATELET VOLUME 9.2 fL (7.9-10.8); MONOCYTES # (AUTO) 0.3 10^3/uL (0.0-1.0); MONOCYTES % (AUTO) 9.5 %; NEUTROPHILS # (AUTO) 1.5 10^3/uL (1.5-6.6); NEUTROPHILS % (AUTO) 53.6 %; PLT - PLATELET COUNT 177 10^3/uL (130-450); RED BLOOD COUNT 3.53 10^6/uL (4.20-5.40); WHITE BLOOD COUNT 2.9 x10^3/uL (4.8-10.8)
[2023-07-17 05:50] LABS: PLATELET ESTIMATE, MANUAL NORMAL (130-450,000) (NORMAL); PLATELET MORPHOLOGY NORMAL APPEARANCE (NORMAL); RBC MORPHOLOGY (MULTIPLE) NORMAL APPEARANCE (NORMAL); SLIDE REVIEW? Indicated; WBC MORPHOLOGY (MULTIPLE) NORMAL APPEARANCE (NORMAL)
[2023-07-17 06:04] LABS: CALCIUM 8.6 mg/dL (8.5-10.3); CREATININE 0.3 mg/dL (0.6-1.3); POTASSIUM 2.9 mmol/L (3.5-4.5)
[2023-07-17] MEDS ORDERED: POTASSIUM CHLORIDE 10 MEQ CAPSULE PO SCH (09:21)
[2023-07-17] MEDS ORDERED: DOCUSATE SODIUM 250 MG CAPSULE PO SCH (10:00)
[2023-07-17] MEDS ORDERED: hydrALAZINE 25 MG TABLET PO SCH (10:00)
[2023-07-17] MEDS ORDERED: ASPIRIN 325 MG TABLET PO SCH (10:00)
[2023-07-17] MEDS: POTASSIUM CHLOR 10 MEQ/100 ML 10 MEQ/100 ML BAG IV SCH ×4 (10:07→13:09)
--- NOTE | 2023-07-17 11:26 | Discharge Plan ---
Discharge Plan Problem Reviewed?: Yes Disposition: Home, Self Care Condition: Stable Prescriptions: hydrALAZINE [Apresoline] 25 mg PO TID #90 tab Potassium Chloride [Micro-K] 20 - 40 meq PO DAILY #68 cap Diet: Soft Activity Restrictions: Activity as Tolerated Shower Restrictions: No Driving Restrictions: No Instruction Topics: Obstruction Sm Bowel Health Concerns: You were hospitalized to treat a bowel obstruction, which you have had before. The bowel has opened up with conservative management of bowel rest and the Gastrografin challenge orally. You were also dehydrated and had a very low potassium levels and needed a lot of potassium replacement. You are being discharged home today. Please stay well-hydrated and eat a soft diet, that is easily digestible. You should no longer take the lisinopril/HCTZ medicine for blood pressure. The HCTZ portion is a water pill, which dehydrates you, it is giving you constipation and could be adding to the bowel obstructions. In place of the Lisinopril/HCTZ, I have increased her hydralazine to be taken 3 times a day instead of twice, and placed a new prescription order. You may resume all your other usual pre-hospital medications. Extra doses of potassium are advised for the next 2 to 3 days, and have also been prescribed. You should have an office visit with your primary care provider in the next 5 to 10 days, for a hospital follow-up visit. If you mentioned that you are an inpatient in the hospital, they will give you priority for an office visit. Plan of Treatment: As above. Care Goals: Improvement in symptoms and stabilization are the goals. Assessment: The patient understands and is agreeable with the plan. Additional Instructions or Follow Up instructions: If you have new or worsening symptoms, call your Primary Care Provider for advice, or come to the ER. No Smoking: If you smoke, Please STOP! Call for help. Follow-up with: Nicolasa Rapp PA-C [Primary Care Provider] -
[2023-07-17] MEDS ORDERED: SODIUM CHLORIDE 0.9% 1,000 ML IV SCH (11:57)
[2023-07-17 15:51] VITALS: BP 150/78; O2SAT 100
[2023-07-17] MEDS ORDERED: ATORVASTATIN 10 MG TABLET PO SCH (21:00)
[2023-07-17] MEDS ORDERED: lisinopriL 20 MG TABLET PO SCH (21:00)
--- NOTE | 2023-07-18 17:33 | DISCHARGE SUMMARY ---
Discharge Summary Admit Date: 07/14/23 Discharge Date: 07/17/23 Discharging Provider: Dr Tosha Rojo Primary Care Provider: ADRIA Rapp Condition at Discharge: Stable Discharge Disposition: 01 Home, Self Care - HPI History of Present Illness: 87 y old female with PMH HTN, Colon cancer s/p partial colectomy, H/O bowel obstructions presented top ER due to abdominal pain, bloating, nausea and vomiting since yesterday. Last BM was yesterday. Denies fever, chest pain, SOB, symptoms On presenation,. BP accelerated afebrile Labs showed normal WBC, hypokalemia CT abdomen showed SBO As per Dr Simon, he consulted with surgeon fabrication engineer, Dr Saldaña who will consult Pt is admitted due to SBO, nausea, vomiting, hypokalemia - HOSPITAL COURSE Hospital Course: (1) Small bowel obstruction She has had prior abdominal surgery. She has had bowel obstructions before. She was put on bowel rest, was NPO, got iv fluids, had minimal pain or N/V. A Gastrografin challenge was done and she opened up. She tolerated her diet being advanced and was discharged home. (2) Hypertension Her BP is elevated here probably from pain and stress of her SBO. She was also not on her oral BP meds. We gave iv meds for control, until she was discharged. (3) Hypokalemia From potassium losses in her vomiting but also from being on HCTZ BP med. We gave her iv K riders. (4) History of hemicolectomy Done for colon CA. This gives her risk for the bowel obstructions she has had - ALLERGIES Allergies/Adverse Reactions: Allergies Allergy/AdvReac Type Severity Reaction Status Date / Time aspirin AdvReac bleeding Verified 11/27/22 14:58 - MEDICATIONS Home Medications: Ambulatory Orders Medication Instructions Recorded Confirmed lisinopriL [Zestril] 20 mg PO QPM 01/21/14 07/14/23 Aspirin 325 mg PO DAILY 01/18/20 07/14/23 Atorvastatin Calcium 10 mg PO QPM 01/18/20 07/14/23 Calcium Carbonate/Vitamin D3 1 tab PO DAILY 01/18/20 07/14/23 [Caltrate 600 Plus D3 Tablet] Cetirizine [ZyrTEC] 5 - 10 mg PO BID MDD 15 mg 01/18/20 07/14/23 Docusate Sodium 250Mg Capsule 250 mg PO BID 01/18/20 07/14/23 [Colace 250Mg Capsule] polyethylene glycoL 3350(BULK) 17 gm PO DAILY PRN #1 each 11/29/22 07/14/23 [Miralax (Bulk)] Pantoprazole Sodium 20 mg PO DAILY 07/14/23 07/14/23 Vits A,C,E/Lutein/Minerals [Eye 1 tab PO BID 07/14/23 07/14/23 Health Plus Lutein Tablet] Potassium Chloride [Micro-K] 20 - 40 meq PO DAILY #68 cap 07/17/23 hydrALAZINE [Apresoline] 25 mg PO TID #90 tab 07/17/23 - PHYSICAL EXAM AT DISCHARGE General Appearance: positive: No acute distress, Alert, Other (Thin elderly female) Eyes Bilateral: positive: Normal inspection, EOMI ENT: positive: ENT inspection nml, No signs of dehydration Neck: positive: Nml inspection, No JVD Respiratory: positive: No respiratory distress, Breath sounds nml Cardiovascular: positive: Regular rate & rhythm, No murmur Abdomen: positive: Non-tender, Nml bowel sounds, No distention Skin: positive: Warm, Dry Extremities: positive: Non-tender, No pedal edema Neurologic/Psychiatric: positive: Oriented x3, Motor nml - LABS Result Diagrams: 07/17/23 05:21 07/17/23 14:30 - DIAGNOSTIC IMAGING Diagnostic Imaging Results: Final report reviewed - FOLLOW UP Follow Up: See PCP in 1-2 weeks for a hospital follow-up visit. - TIME SPENT Time Spent in Discharge (Minutes): 30
== END 2023-07-17 15:46 | disposition home or self-care (01) | DRG 390 ==
LOC: ED 19:59 → MS2 23:27
PROVIDERS: ADMIT Internal Medicine; ATTEND Internal Medicine
DX: K56.609 Unspecified intestinal obstruction, unspecified as to partial versus complete obstruction (principal); I10 Essential (primary) hypertension; E87.6 Hypokalemia; K59.09 Other constipation; Z79.82 Long term (current) use of aspirin; Z79.899 Other long term (current) drug therapy; Z80.1 Family history of malignant neoplasm of trachea, bronchus and lung; Z85.038 Personal history of other malignant neoplasm of large intestine; Z86.73 Personal history of transient ischemic attack (TIA), and cerebral infarction without residual deficits; Z90.49 Acquired absence of other specified parts of digestive tract
CPT/HCPCS: 36415; 74177; 74250; 80048; 80053; 81001; 83690; 83735; 84100; 84132; 85025; 96374; 99284; 99285; A9270; Q9963; Q9967; 81003; 87086

== ENCOUNTER 2023-07-21 09:38 | Outpatient (CLI) | payer MEDICARE, OTHER ==
[2023-07-21 10:23] LABS: CALCIUM 9.8 mg/dL (8.5-10.3); CREATININE 0.6 mg/dL (0.6-1.3); POTASSIUM 4.5 mmol/L (3.5-4.5)
== END 2023-07-21 09:39 | disposition home or self-care (01) ==
LOC: LAB 09:38
PROVIDERS: ATTEND Physician Assistant Medical
DX: I10 Essential (primary) hypertension (principal)
CPT/HCPCS: 36415; 80048

== ENCOUNTER 2024-03-02 14:30 | Outpatient (CLI) | payer MEDICARE, OTHER ==
--- NOTE | 2024-03-02 21:31 | XRAY Report ---
PROCEDURE: Lumbar Spine 2-3V INDICATIONS: BACK PAIN TECHNIQUE: 3 views of the lumbar spine were acquired. COMPARISON: CT abdomen and pelvis 07/14/2023 FINDINGS: Bones: 5 [id number] vertebrae are present. The bones are diffusely osteopenic. There is probabl e grade 1 retrolisthesis at L3-4 and L4-5. There is exaggerated kyphosis in the thoracolumbar spine. Right lateral subluxation of L3, chronic. Severe disc height loss at L5-S1. Mild anterior wedge defor mity of L4 and osteoporotic fracture of L3. No acute appearing vertebral body compression fractures. No suspicious bony lesions. Soft tissues: Overlying bowel gas pattern is normal. Cholecystectomy clips present. Increased quant ity of solid colonic stool. No suspicious soft tissue calcifications. IMPRESSION: Stable appearance of the lumbar spine compared to the prior CT scan, including findings of multilevel retrolisthesis. No acute vertebral body fracture. Reviewed by: Valeria Rodgers MD on 03/02/2024 9:29 PM PDT Approved by: Valeria Rodgers MD on 03/02/2024 9:29 PM PDT Station ID: [id number]
== END 2024-03-02 14:31 | disposition home or self-care (01) ==
LOC: DI 14:30
PROVIDERS: ATTEND Physician Assistant Medical
DX: M43.16 Spondylolisthesis, lumbar region (principal); M48.56XD Collapsed vertebra, not elsewhere classified, lumbar region, subsequent encounter for fracture with routine healing; M43.8X6 Other specified deforming dorsopathies, lumbar region

== ENCOUNTER 2024-03-02 14:39 | Outpatient (CLI) | payer MEDICARE, OTHER ==
--- NOTE | 2024-03-02 21:33 | XRAY Report ---
PROCEDURE: Thoracic Spine 3V INDICATIONS: BACK PAIN TECHNIQUE: 3 views of the thoracic spine were acquired. COMPARISON: None. FINDINGS: Bones: No acute fractures or dislocations. Diffuse demineralization. Mild anterior wedge deformitie s of T11 and T12 results in focal kyphotic curvature. The rest of the thoracic vertebral body alignme nt and disc spacing is normal. No suspicious bony lesions. 12 pairs of ribs are noted, and appear in tact where visualized. Soft tissues: No paravertebral stripe thickening. IMPRESSION: Mild chronic lower thoracic spine wedge deformities. Reviewed by: Valeria Rodgers MD on 03/02/2024 9:31 PM PDT Approved by: Valeria Rodgers MD on 03/02/2024 9:31 PM PDT Station ID: [id number]
== END 2024-03-02 14:40 | disposition home or self-care (01) ==
LOC: DI 14:39
PROVIDERS: ATTEND Physician Assistant Medical
DX: M43.8X4 Other specified deforming dorsopathies, thoracic region (principal)

== ENCOUNTER 2024-04-06 09:38 | Outpatient (CLI) | payer MEDICARE, OTHER ==
[2024-04-06 09:48] LABS: BASOPHILS # (AUTO) 0.1 10^3/uL (0.0-0.1); BASOPHILS % (AUTO) 2.5 %; EOSINOPHILS # (AUTO) 0.2 10^3/uL (0.0-0.7); EOSINOPHILS % (AUTO) 4.3 %; HCT - HEMATOCRIT 38.2 % (37.0-47.0); LYMPHOCYTES # (AUTO) 1.7 10^3/uL (1.5-3.5); LYMPHOCYTES % (AUTO) 42.1 %; MEAN CORPUSCULAR HEMOGLOBIN 28.6 pg (27.0-31.0); MEAN CORPUSCULAR HGB CONC 31.4 g/dL (32.0-36.0); MEAN PLATELET VOLUME 8.4 fL (7.9-10.8); MONOCYTES # (AUTO) 0.3 10^3/uL (0.0-1.0); MONOCYTES % (AUTO) 8.3 %; NEUTROPHILS # (AUTO) 1.7 10^3/uL (1.5-6.6); NEUTROPHILS % (AUTO) 42.8 %; PLT - PLATELET COUNT 223 10^3/uL (130-450); RED CELL DISTRIBUTION WIDTH 13.4 % (12.0-15.0)
[2024-04-06 10:05] LABS: ALBUMIN 4.7 g/dL (3.2-5.5); ALKALINE PHOSPHATASE 44 IU/L (42-121); ALT ALANINE AMINOTRANSFERASE 17 IU/L (10-60); AST ASPARTATE AMINOTRANSFERASE 20 IU/L (10-42); BILIRUBIN,TOTAL 0.9 mg/dL (0.2-1.0); BUN - BLOOD UREA NITROGEN 23 mg/dL (6-20); CALCIUM 10.1 mg/dL (8.5-10.3); CARBON DIOXIDE - CO2 29 mmol/L (21-32); CHLORIDE 101 mmol/L (101-111); CHOL/HDL RATIO 1.8 (<4.4); CHOLESTEROL 152 mg/dL; CREATININE 0.6 mg/dL (0.6-1.3); GFR - MDRD 94 (>89); GLUCOSE 96 mg/dL (74-104); HDL CHOLESTEROL 86 mg/dL; LDL CHOLESTEROL,CALCULATED 54 mg/dL; LDL/HDL RATIO 0.6 (<4.4); POTASSIUM 3.9 mmol/L (3.5-4.5); SODIUM 135 mmol/L (135-145); TOTAL PROTEIN 7.1 g/dL (6.4-8.9); TRIGLYCERIDES 62 mg/dL (48-352); VLDL CHOLESTEROL 12 mg/dL
== END 2024-04-06 09:39 | disposition home or self-care (01) ==
LOC: LAB 09:38
PROVIDERS: ATTEND Physician Assistant Medical
DX: I10 Essential (primary) hypertension (principal)
CPT/HCPCS: 36415; 80053; 80061; 83721; 85025

== ENCOUNTER 2024-07-10 19:13 | Emergency (ER) | payer MEDICARE, OTHER ==
[2024-07-10 19:33] VITALS: BP 117/66; O2SAT 97
[2024-07-10 19:42] LABS: BASOPHILS # (AUTO) 0.1 10^3/uL (0.0-0.1); BASOPHILS % (AUTO) 0.6 %; EOSINOPHILS % (AUTO) 0.2 %; HCT - HEMATOCRIT 42.2 % (37.0-47.0); HGB - HEMOGLOBIN 13.5 g/dL (12.0-16.0); LYMPHOCYTES # (AUTO) 1.4 10^3/uL (1.5-3.5); LYMPHOCYTES % (AUTO) 15.6 %; MEAN CORPUSCULAR HEMOGLOBIN 27.7 pg (27.0-31.0); MEAN CORPUSCULAR VOLUME 86.5 fL (81.0-99.0); MEAN PLATELET VOLUME 8.8 fL (7.9-10.8); MONOCYTES # (AUTO) 0.5 10^3/uL (0.0-1.0); MONOCYTES % (AUTO) 5.4 %; NEUTROPHILS # (AUTO) 6.8 10^3/uL (1.5-6.6); PLT - PLATELET COUNT 351 10^3/uL (130-450); RED BLOOD COUNT 4.88 10^6/uL (4.20-5.40); RED CELL DISTRIBUTION WIDTH 14.7 % (12.0-15.0); WHITE BLOOD COUNT 8.7 x10^3/uL (4.8-10.8)
[2024-07-10 19:51] LABS: ALBUMIN 4.8 g/dL (3.2-5.5); ALBUMIN/GLOBULIN RATIO 1.7 (1.0-2.2); BILIRUBIN,TOTAL 1.3 mg/dL (0.2-1.0); CALCIUM 10.9 mg/dL (8.5-10.3); CREATININE 0.8 mg/dL (0.6-1.3); POTASSIUM 3.8 mmol/L (3.5-4.5); TOTAL PROTEIN 7.6 g/dL (6.4-8.9)
== END 2024-07-10 21:25 | disposition left against medical advice (07) ==
LOC: ED 19:13
DX: Z53.21 Procedure and treatment not carried out due to patient leaving prior to being seen by health care provider (principal)
CPT/HCPCS: 36415; 80053; 83690; 85025